=== PATIENT | female | born 1945 | race Caucasian/White ===

== ENCOUNTER 2017-04-24 19:00 | Observation (INO) | payer MEDICARE, OTHER ==
[2017-04-24] MEDS ORDERED: predniSONE 20 MG Tab PO ONE (19:14)
[2017-04-24] MEDS ORDERED: Albuterol/Ipratropium 3.0-0.5 MG/3 ML Neb Soln NEB ONE (19:14)
--- NOTE | 2017-04-24 19:20 | EDM.PDOC ---
ED HPI GENERAL MEDICAL PROBLEM - General Chief Complaint: Asthma Stated Complaint: ILLNESS Time Seen by Provider: 04/24/17 19:10 Source of Information: Reports: Patient, Old Records History Limitations: Reports: No Limitations - History of Present Illness INITIAL COMMENTS - FREE TEXT/NARRATIVE: 72 yo female with a pHx of asthma presents with increasing cough and wheezing since this past Wednesday. No fever. Cough occasionally productive of yellow sputum. Has not been to the clinic. Her neb anila'n and prednisone was "" so she threw them out. Use her MDI of albuterol about 30 minutes before arrival with little benefit. Onset: Gradual Onset Date: 04/19/17 Duration: Day(s): Location: Reports: Chest Severity: Moderate Improves with: Reports: Medication (albuterol), Rest Worsens with: Reports: Other (exertion, coughing) Context: Reports: Other (pHx of asthma) Associated Symptoms: Reports: Cough, Shortness of Breath (mild with exertion or coughing) Treatments IRONING PLEATER: Reports: Other Medication(s) (albuterol MDI) Generalized Pain Score (Numeric/FACES): 6 - Related Data Allergies Allergy/AdvReac Type Severity Reaction Status Date / Time amoxicillin [Amoxicillin] Allergy Hives Verified 04/24/17 19:05 nitrofurantoin Allergy Difficulty Verified 04/24/17 19:05 macrocrystalline Breathing [From Macrodantin] Sulfa (Sulfonamide Allergy Hives Verified 04/24/17 19:05 Antibiotics) sulfisoxazole Allergy Hives Verified 04/24/17 19:05 [From Gantrisin] sulfisoxazole acetyl Allergy Hives Verified 04/24/17 19:05 [From Gantrisin] Home Meds: Home Meds Cyanocobalamin (Vitamin B-12) [Cyanocobalamin Injection] 1,000 mcg IJ ASDIRECTED 06/18/13 [History] Fenofibrate,Micronized [Lofibra] 200 mg PO DAILY 06/18/13 [History] Fluticasone/Salmeterol [Advair 100-50 Diskus] 1 puff INH BID 06/18/13 [History] Levothyroxine [Sythroid] 100 mcg PO DAILY 06/18/13 [History] Montelukast [Singulair] 10 mg PO DAILY 06/18/13 [History] Olmesartan/Hydrochlorothiazide [Benicar Hct 40-25 mg Tablet] 0 mg PO DAILY 06/18 [History] Omeprazole [Prilosec] 40 mg PO DAILY 06/18/13 [History] PARoxetine HCl [Paxil Cr] 50 mg PO DAILY 06/18/13 [History] amLODIPine [Norvasc] 5 mg PO DAILY 06/18/13 [History] Bimatoprost [LUMIGAN 0.01% Ophth Soln] 2.5 ml EYEBOTH DAILY 01/04/16 [History] Flucinolone Acetonide 1% 1 applic TOP DAILY 01/04/16 [History] clonazePAM [Clonazepam] 1 mg PO ASDIRECTED PRN 01/04/16 [History] Past Medical History HEENT History: Reports: Cataract, Glaucoma Cardiovascular History: Reports: High Cholesterol, Hypertension Respiratory History: Reports: Asthma Gastrointestinal History: Reports: GERD, Irritable Bowel Syndrome PATENT PARALEGAL History: Reports: Psychiatric History: Reports: Depression Endocrine/Metabolic History: Reports: Other (See Below) Other Endocrine/Metabolic History: thyroid disease - Infectious Disease History Infectious Disease History: Reports: Chicken Pox - Past Surgical History HEENT Surgical History: Reports: Tonsillectomy Female Surgical History: Reports: Hysterectomy Social & Family History - Tobacco Use Smoking Status *Q: Unknown Ever Smoked Second Hand Smoke Exposure: No - Alcohol Use Days Per Week of Alcohol Use: 1 Number of Drinks Per Day: 2 Total Drinks Per Week: 2 - Recreational Drug Use Recreational Drug Use: No ED ROS GENERAL - Review of Systems Review Of Systems: See Below Constitutional: Reports: No Symptoms HEENT: Reports: No Symptoms Respiratory: Reports: Wheezing, Cough Cardiovascular: Reports: No Symptoms Endocrine: Reports: No Symptoms GI/Abdominal: Reports: No Symptoms : Reports: No Symptoms Musculoskeletal: Reports: No Symptoms Skin: Reports: No Symptoms Neurological: Reports: No Symptoms ED EXAM, GENERAL - Physical Exam Exam: See Below Exam Limited By: No Limitations General Appearance: Alert, WD/WN, Mild Distress Eye Exam: Bilateral Eye: Normal Inspection Ears: Normal External Exam, Normal Canal, Hearing Grossly Normal Ear Exam: Bilateral Ear: Auricle Normal, Canal Normal Nose: Normal Inspection Throat/Mouth: Normal Inspection, Normal Lips, Normal Oropharynx, Normal Voice, No Airway Compromise Head: Atraumatic, Normocephalic Neck: Normal Inspection, Supple, Non-Tender Respiratory/Chest: No Respiratory Distress, No Accessory Muscle Use, Wheezing ( faint), Other (frequent dry cough) Cardiovascular: Regular Rate, Rhythm, No Edema GI/Abdominal: Normal Bowel Sounds, Soft, Non-Tender, No Distention Back Exam: Normal Inspection. No: CVA Tenderness (R), CVA Tenderness (L) Extremities: Normal Inspection, Normal Range of Motion, Non-Tender Neurological: Alert, Oriented, CN II-XII Intact, Normal Cognition, No Motor/ Sensory Deficits Psychiatric: Normal Affect, Normal Mood Skin Exam: Warm, Dry, Intact, Normal Color, No Rash Lymphatic: No Adenopathy Course - Vital Signs Text/Narrative:: peak flow 290, [id number] 290 is 77% of predicted. Last Recorded V/S: Last Vital Signs Temp 37.2 C 04/24/17 19:00 Pulse 84 04/24/17 19:00 Resp 24 H 04/24/17 19:00 BP 150/52 H 04/24/17 19:00 Pulse Ox 97 04/24/17 19:00 - Orders/Labs/Meds Orders: Active Orders 24 hr Category Date Time Status RT Aerosol Therapy [RC] ASDIRECTED Care 04/24/17 19:14 Active RT Aerosol Therapy [RC] ASDIRECTED Care 04/24/17 19:47 Active RT Peak Flow Measurement [RC] ASDIRECTED Care 04/24/17 20:18 Ordered Labs: Laboratory Tests 04/24/17 Range/Units 19:27 WBC 7.4 (4.5-11.0) K/uL RBC 4.48 (3.30-5.50) M/uL Hgb 13.9 (12.0-15.0) g/dL Hct 40.3 (36.0-48.0) % MCV 90 (80-98) fL MCH 31 (27-31) pg MCHC 35 (32-36) % Plt Count 103 L (150-400) K/uL Meds: Medications Discontinued Medications Generic Name Dose Route Start Last Admin Trade Name Freq PRN Reason Stop Dose Admin Albuterol 2.5 mg 04/24/17 19:46 04/24/17 19:53 Proventil Neb Soln NEB 04/24/17 19:47 2.5 mg ONETIME ONE Administration Albuterol/Ipratropium 3 ml 04/24/17 19:14 04/24/17 19:18 Duoneb 3.0-0.5 Mg/3 Ml NEB 04/24/17 19:15 3 ml ONETIME ONE Administration Prednisone 40 mg 04/24/17 19:14 04/24/17 19:18 Prednisone PO 04/24/17 19:15 40 mg ONETIME ONE Administration Departure - Departure Time of Disposition: 20:50 Disposition: Refer to Observation Condition: Fair Clinical Impression: Asthma with status asthmaticus Qualifiers: Asthma severity: moderate Asthma persistence: unspecified Qualified Code(s): J45.902 - Unspecified asthma with status asthmaticus - Discharge Information Referrals: PCP,None [Primary Care Provider] - Forms: ED Department Discharge - My Orders Last 24 Hours: My Active Orders 04/24/17 19:14 RT Aerosol Therapy [RC] ASDIRECTED 04/24/17 19:47 RT Aerosol Therapy [RC] ASDIRECTED 04/24/17 20:18 RT Peak Flow Measurement [RC] ASDIRECTED - Assessment/Plan Last 24 Hours: My Active Orders 04/24/17 19:14 RT Aerosol Therapy [RC] ASDIRECTED 04/24/17 19:47 RT Aerosol Therapy [RC] ASDIRECTED 04/24/17 20:18 RT Peak Flow Measurement [RC] ASDIRECTED
[2017-04-24] MEDS ORDERED: Albuterol 0.083% 2.5 MG/3 ML Neb Soln NEB ONE (19:46)
[2017-04-24] MEDS ORDERED: LORazepam 2 MG/ML MDV IVPUSH ONE (21:15)
--- NOTE | 2017-04-24 21:37 | PCM.HP ---
H&P History of Present Illness - General Date of Service: 04/24/17 Admit Problem/Dx: Admission Diagnosis/Problem Admission Diagnosis/Problem Asthma with bronchitis Source of Information: Patient, Family (Cousin Mag De La Cruz) History Limitations: Reports: No Limitations - History of Present Illness Initial Comments - Free Text/Narative: Asthma with bronchitis; this is a 72 year old female admitted to hospital at [facility]. 72 yo female with a pHx of asthma presents with increasing cough and wheezing since this past Wednesday. No fever. Cough occasionally productive of yellow sputum. Has not been to the clinic. Her neb anila'n and prednisone was "" so she threw them out. Use her MDI of albuterol about 30 minutes before arrival with little benefit. Mrs. Gan reports cough has worsen in the past 2 days, today she cough til she threw up with incontinence of urine. Today coughed til she blacked out and fell to her knees. Onset of Symptoms: Reports: Sudden Duration of Symptoms: Reports: Day(s): (six), Getting Worse Location: Reports: Head, Chest Severity: Moderate Improves with: Reports: None Worsens with: Reports: Breathing (talking) Associated Symptoms: Reports: Cough, Fever/Chills (chills without fever), Headaches, Loss of Appetite, Malaise, Nausea/Vomiting, Shortness of Breath, Syncope (near syncope), Weakness Generalized Pain Score (Numeric/FACES): 6 - Related Data Allergies/Adverse Reactions: Allergies Allergy/AdvReac Type Severity Reaction Status Date / Time amoxicillin [Amoxicillin] Allergy Hives Verified 04/24/17 19:05 nitrofurantoin Allergy Difficulty Verified 04/24/17 19:05 macrocrystalline Breathing [From Macrodantin] Sulfa (Sulfonamide Allergy Hives Verified 04/24/17 19:05 Antibiotics) sulfisoxazole Allergy Hives Verified 04/24/17 19:05 [From Gantrisin] sulfisoxazole acetyl Allergy Hives Verified 04/24/17 19:05 [From Gantrisin] Home Medications: Home Meds Cyanocobalamin (Vitamin B-12) [Cyanocobalamin Injection] 1,000 mcg IJ ASDIRECTED 06/18/13 [History] Fluticasone/Salmeterol [Advair 100-50 Diskus] 1 puff INH BID 06/18/13 [History] Levothyroxine [Sythroid] 100 mcg PO DAILY 06/18/13 [History] Montelukast [Singulair] 10 mg PO DAILY 06/18/13 [History] PARoxetine HCl [Paxil Cr] 50 mg PO DAILY 06/18/13 [History] amLODIPine [Norvasc] 5 mg PO DAILY 06/18/13 [History] Bimatoprost [LUMIGAN 0.01% Ophth Soln] 2.5 ml EYEBOTH DAILY 01/04/16 [History] Flucinolone Acetonide 1% 1 applic TOP DAILY PRN 01/04/16 [History] clonazePAM [Clonazepam] 1 mg PO ASDIRECTED PRN 01/04/16 [History] Estradiol [Estrace 0.01% Vaginal Crm] 2 mg VAG ASDIRECTED 04/24/17 [History] Past Medical History HEENT History: Reports: Cataract, Glaucoma Cardiovascular History: Reports: High Cholesterol, Hypertension Respiratory History: Reports: Asthma Gastrointestinal History: Reports: GERD, Irritable Bowel Syndrome [employer] History: Reports: Psychiatric History: Reports: Depression Endocrine/Metabolic History: Reports: Other (See Below) Other Endocrine/Metabolic History: thyroid disease - Infectious Disease History Infectious Disease History: Reports: Chicken Pox - Past Surgical History HEENT Surgical History: Reports: Tonsillectomy Female Surgical History: Reports: Hysterectomy Social & Family History - Tobacco Use Smoking Status *Q: Unknown Ever Smoked Second Hand Smoke Exposure: No - Alcohol Use Days Per Week of Alcohol Use: 1 Number of Drinks Per Day: 2 Total Drinks Per Week: 2 - Recreational Drug Use Recreational Drug Use: No - Living Situation & Occupation Living situation: Reports: Occupation: Retired (lives with of 37 years in [place], [place].) H&P Review of Systems - Review of Systems: Review Of Systems: See Below General: Reports: Chills, Malaise, Weakness, Fatigue, Decreased Appetite, Other (uncontrolled cough) HEENT: Reports: Glasses, Headaches (today from cough), Post Nasal Drip, Sinus Congestion, Sore Throat Pulmonary: Reports: Shortness of Breath, Pleuritic Chest Pain, Cough Cardiovascular: Reports: Lightheadedness (from cough) Gastrointestinal: Reports: Nausea Genitourinary: Reports: Incontinence (from prolonged coughing spells.) Musculoskeletal: Reports: Muscle Stiffness (osteo and spinal stenosis) Skin: Reports: Other (scalp dermatitis) Psychiatric: Reports: Anxiety (chronic) Neurological: Reports: Headache (secondary to cough) Hematologic/Lymphatic: Reports: No Symptoms Immunologic: Reports: Anaphylaxis (medication allergies; amoxicillin, septra, macrobid. ) Exam - Exam Exam: See Below - Vital Signs Vital Signs: Last Vital Signs Temp 37.2 C 04/24/17 19:00 Pulse 81 04/24/17 20:30 Resp 15 04/24/17 20:30 BP 131/68 04/24/17 20:30 Pulse Ox 94 L 04/24/17 20:30 Weight: 58.967 kg - Exam General: Alert, Oriented, Cooperative, Mild Distress (secondary to frequent coughing) HEENT: PERRLA, Conjunctiva Clear, EACs Clear, EOMI, Hearing Intact, Mucosa Moist & [place], Pupils Equal, Pupils Reactive, Rhinitis, Other (left maxillary congestion, palpation painful, left facial cheeck with mild edema.) Neck: Supple, Trachea Midline, Full Range of Motion Lungs: Normal Respiratory Effort, Decreased Breath Sounds, Wheezing (left upper chest), Other (frequent cough is noted.) Cardiovascular: Regular Rate, Regular Rhythm, Normal S1, Normal S2 GI/Abdominal Exam: Normal Bowel Sounds, Soft, Non-Tender, No Distention, No Abnormal Bruit, No Mass (Female) Exam: Deferred Rectal (Female) Exam: Deferred Back Exam: Normal Inspection, Full Range of Motion Extremities: Normal Inspection, Normal Range of Motion, Non-Tender, No Pedal Edema, Normal Capillary Refill Skin: Warm, Dry, Intact Neurological: Reflexes Equal Bilateral, Strength Equal Bilateral Neuro Extensive - Mental Status: Alert, Oriented x3, Normal Mood/Affect, Normal Cognition, Memory Intact Psychiatric: Alert, Normal Affect, Normal Mood, Other (tremor noted to hands and body, Patient reports this is normal, worsen with illness or stress) - Patient Data Lab Results Last 24 hrs: Laboratory Results - last 24 hr 04/24/17 Range/Units 19:27 WBC 7.4 (4.5-11.0) K/uL RBC 4.48 (3.30-5.50) M/uL Hgb 13.9 (12.0-15.0) g/dL Hct 40.3 (36.0-48.0) % MCV 90 (80-98) fL MCH 31 (27-31) pg MCHC 35 (32-36) % Plt Count 103 L (150-400) K/uL Result Diagrams: 04/24/17 19:27 04/24/17 21:14 *Q Meaningful Use (ADM) - VTE *Q VTE Criteria *Q: - Stroke *Q Stroke Criteria *Q: - AMI *Q AMI Criteria *Q: - Problem List (1) Asthma with bronchitis SNOMED Code(s): 103436395 ICD Code: J45.909 - UNSPECIFIED ASTHMA, UNCOMPLICATED Status: Acute Priority: High Current Visit: Yes (2) Sinusitis, acute SNOMED Code(s): 73850472 ICD Code: J01.90 - ACUTE SINUSITIS, UNSPECIFIED Status: Acute Priority: Medium Current Visit: Yes Qualifiers: Sinusitis location: maxillary Recurrence: not specified as recurrent Qualified Code(s): J01.00 - Acute maxillary sinusitis, unspecified (3) Anxiety and depression SNOMED Code(s): 669164391 ICD Code: F41.8 - OTHER SPECIFIED ANXIETY DISORDERS Status: Acute Priority: Low Current Visit: Yes (4) Hypothyroid SNOMED Code(s): 32247991 ICD Code: E03.9 - HYPOTHYROIDISM, UNSPECIFIED Status: Acute Priority: Low Current Visit: Yes Qualifiers: Hypothyroidism type: unspecified Qualified Code(s): E03.9 - Hypothyroidism , unspecified Problem List Initiated/Reviewed/Updated: Yes Orders Last 24hrs: Active Orders 24 hr Category Date Time Status Patient Status Manage Transfer [TRANSFER] Routine ADT 04/24/17 21:16 Active RT Aerosol Therapy [RC] ASDIRECTED Care 04/24/17 19:14 Active RT Aerosol Therapy [RC] ASDIRECTED Care 04/24/17 19:47 Active RT Peak Flow Measurement [RC] ASDIRECTED Care 04/24/17 20:18 Active Chest 2V [CR] Stat Exams 04/24/17 21:14 Ordered COMPREHENSIVE METABOLIC PN,CMP [CHEM] Urgent Lab 04/24/17 21:14 Ordered TSH ULTRASENSITIVE [CHEM] Urgent Lab 04/24/17 21:14 Ordered Sodium Chloride 0.9% [Normal Saline] 1,000 ml Med 04/24/17 21:15 Active IV ASDIRECTED Resuscitation Status Routine Resus Stat 04/24/17 21:17 Ordered Medication Orders Sodium Chloride (Normal Saline) 1,000 mls @ 125 mls/hr IV ASDIRECTED [facility] Assessment/Plan Comment:: ASSESSMENT / PLAN 72 yo female with a pHx of asthma presents with increasing cough and wheezing since this past Wednesday. No fever. Cough occasionally productive of yellow sputum. Has not been to the clinic. Her neb anila'n and prednisone was "" so she threw them out. Use her MDI of albuterol about 30 minutes before arrival with little benefit. Mrs. Gan reports cough has worsen in the past 2 days, today she cough til she threw up with incontinence of urine. Today coughed til she blacked out and fell to her knees. Labs in ER: CBC, CMP, TSH, SPUTUM CULTURE: WBC 7.4, Hgb 13.9, HCT 40.3, PLT 102 , CMP NA 134, K+3.6, CL 100, ANION GAP 11.6, BUN 13, CR 0.9, GLUC 91, CO2 26 TSH 6.244 IMAGING; CHEST PA/LAT Mrs. Gan was given Albuterol neb, Duoneb, Prednisone 40 mg po without relief. Due to continued bronchospasm and weakness, will plan to admit OBS. Patient is in agreement with admission to hospital, reports," will stay only one night, need to be home to care for animals. is away on mission trip to [place]." Plan -Admit Observation to [address] [place] [address] for further monitoring Asthma with bronchitis, Acute sinusitis -IV Solumedrol 62.5mg every 6 hours -IV fluids for rehydration NS at 125 mL per hour -Albuterol nebs prn wheezing or cough -Duoneb every 6 hours -IV Rocephin 1 gm every 24 hours -IV Zithromax 500mg every 24 hours -Robitussin AC every 4 hours prn cough -Tessalon pearls tid prn -Advise to notify nurses of any chest pain or other symptoms -a.m. labs: CBC, BMP -lab: sputum culture pending Anxiety -continue current medical therapy -IV Ativan 1 mg every hours as needed for anxiety or nausea hypothyroidism -TSH elevated -will continue with Synthyroid Maintenance issues -Orders home meds: -Nutrition: Regular diet -Cruz catheter not indicated at this time -DVT:Lovenox 40 mg subcut -GI Prophalaxis; Protonix 40mg daily CODE STATUS: Full Admission status: Admit to Observation -I expect this patient to stay less than 24 hours, not to exceed 96 hours for evaluation and management of this problem. Disposition: home Primary care provider: Nancy Devries NP Hospitalist: Dr. Jeronimo Next of Kin: Mrs. Gan request Mag De La Cruz, Cousin and 2nd POA, to be notified of any changes in conditions, cell [phone] or House phone [phone]
[2017-04-24] MEDS: Sodium Chloride 0.9% 1,000 ML IV SCH (21:46)
[2017-04-24] MEDS ORDERED: Azithromycin 500 MG in Sodium Chloride 0.9% 250 ML IV SCH (22:00)
[2017-04-24] MEDS ORDERED: oxyCODONE 5 MG Tab PO PRN (22:26)
[2017-04-24] MEDS ORDERED: Ondansetron 4 MG Tab.DIS PO PRN (22:26)
[2017-04-24] MEDS ORDERED: Albuterol 0.083% 2.5 MG/3 ML Neb Soln NEB PRN (22:26)
[2017-04-24] MEDS ORDERED: LORazepam 2 MG/ML MDV IV PRN (22:26)
[2017-04-24] MEDS ORDERED: methylPREDNISolone Sodium Succinate 125 MG/2 ML SDV IV ONE (22:26)
[2017-04-24] MEDS ORDERED: Ibuprofen 400 MG Tab PO PRN (22:26)
[2017-04-24] MEDS ORDERED: Enoxaparin 40 MG/0.4 ML Syringe SUBCUT SCH (22:26)
[2017-04-24] MEDS ORDERED: Azithromycin 500 MG Vial ONE (22:44)
[2017-04-24] MEDS ORDERED: Sodium Chloride 0.9% 250 ML ONE (22:46)
[2017-04-24] MEDS: Albuterol/Ipratropium 3.0-0.5 MG/3 ML Neb Soln NEB SCH (23:00)
[2017-04-24] MEDS ORDERED: cefTRIAXone 1 GM in Sodium Chloride 0.9% 50 ML IV SCH (23:00)
[2017-04-24] MEDS: Codeine/guaiFENesin 100mg-10 MG/5 ML Syrup 10 ML Cup PO PRN (23:00)
[2017-04-24] MEDS: Morphine 2 MG/ML Syringe IVPUSH PRN (23:01)
[2017-04-24] MEDS: Montelukast 10 MG Tab PO SCH (23:04)
[2017-04-24] MEDS: methylPREDNISolone Sodium Succinate 40 MG/1 ML SDV IV SCH (23:38)
[2017-04-24] MEDS: Zolpidem 5 MG Tab PO PRN (23:46)
[2017-04-25] MEDS: Benzonatate 100 MG Cap PO PRN ×2 (02:20→19:48)
[2017-04-25] MEDS: Codeine/guaiFENesin 100mg-10 MG/5 ML Syrup 10 ML Cup PO PRN ×3 (03:42→15:03)
[2017-04-25] MEDS ORDERED: methylPREDNISolone Sodium Succinate 40 MG/1 ML SDV IV SCH (04:10)
[2017-04-25] MEDS: methylPREDNISolone Sodium Succinate 40 MG/1 ML SDV IV SCH (05:43)
[2017-04-25] MEDS: Sodium Chloride 0.9% 1,000 ML IV SCH (06:58)
[2017-04-25] MEDS: Albuterol/Ipratropium 3.0-0.5 MG/3 ML Neb Soln NEB SCH ×4 (07:34→20:56)
[2017-04-25] MEDS ORDERED: methylPREDNISolone Sodium Succinate 125 MG/2 ML SDV IV SCH (08:00)
[2017-04-25] MEDS: Acetaminophen 325 MG Tab PO PRN ×2 (08:34→15:03)
[2017-04-25] MEDS ORDERED: Latanoprost 0.005% Ophth Soln 2.5 ML Bottle EYEBOTH SCH (09:00)
[2017-04-25] MEDS ORDERED: Pantoprazole 40 MG Vial IVPUSH SCH (09:00)
[2017-04-25] MEDS ORDERED: PARoxetine 20 MG Tab PO SCH (09:00)
[2017-04-25] MEDS ORDERED: Levothyroxine 100 MCG Tab PO SCH (09:00)
[2017-04-25] MEDS: PAROXETINE 37.5 MG PO SCH (09:47)
[2017-04-25] MEDS: PAROXETINE 12.5 MG PO SCH (09:48)
[2017-04-25] MEDS: Levothyroxine 100 MCG Tab**POM PO SCH (09:49)
[2017-04-25] MEDS: amLODIPine 5 MG Tab**POM PO SCH (09:49)
[2017-04-25] MEDS: Montelukast 10 MG Tab PO SCH (09:50)
--- NOTE | 2017-04-25 10:51 | PCM.PN ---
- General Info Date of Service: 04/25/17 - Review of Systems Pulmonary: Reports: Shortness of Breath, Cough Systems Review Comment:: No acute events since the time of admission. Shortness of breath has improved but her cough persists and is the most annoying feature of her illness at this time. She has coughing spells that cause her to be short of breath and take several minutes to recover. She was able to tolerate some food at lunchtime. She has not had any fevers. She has been able to do some walking but fatigues quickly. - Patient Data Vitals - Most Recent: Last Vital Signs Temp 36.5 C 04/25/17 07:00 Pulse 83 04/25/17 07:00 Resp 18 04/25/17 07:00 BP 87/41 L 04/25/17 09:49 Pulse Ox 93 L 04/25/17 07:12 Weight - Most Recent: 58.967 kg I&O - Last 24 Hours: Intake & Output 04/24/17 04/25/17 04/25/17 22:59 06:59 14:59 Intake Total 250 726 440 Balance 250 726 440 Lab Results Last 24 Hours: Laboratory Results - last 24 hr 04/25/17 04/25/17 Range/Units 05:20 05:20 WBC 5.4 (4.5-11.0) K/uL RBC 4.27 (3.30-5.50) M/uL Hgb 13.2 (12.0-15.0) g/dL Hct 37.7 (36.0-48.0) % MCV 88 (80-98) fL MCH 31 (27-31) pg MCHC 35 (32-36) % Plt Count 173 (150-400) K/uL Neut % (Auto) 93 H (36-66) % Lymph % (Auto) 6 L (24-44) % [place] % (Auto) 1 L (2-6) % Eos % (Auto) 0 L (2-4) % Baso % (Auto) 0 (0-1) % Sodium 138 L (140-148) mmol/L Potassium 3.7 (3.6-5.2) mmol/L Chloride 102 (100-108) mmol/L Carbon Dioxide 22 (21-32) mmol/L Anion Gap 17.7 H (5.0-14.0) mmol/L BUN 15 (7-18) mg/dL Creatinine 0.9 (0.6-1.0) mg/dL Est Cr Clr Drug Dosing 46.05 mL/min Estimated GFR (MDRD) > 60 (>60) Glucose 158 H (74-106) mg/dL Calcium 8.5 (8.5-10.1) mg/dL Med Orders - Current: Current Medications Acetaminophen (Tylenol) 650 mg PO Q4H PRN PRN Reason: Pain (Mild 1-3)/fever Last Admin: 04/25/17 08:34 Dose: 650 mg Albuterol (Proventil Neb Soln) 2.5 mg NEB Q4H PRN PRN Reason: Shortness Of Breath/wheezing Albuterol/Ipratropium (Duoneb 3.0-0.5 Mg/3 Ml) 3 ml NEB QIDRT [facility] Last Admin: 04/25/17 07:34 Dose: 3 ml Amlodipine Besylate (Norvasc) 5 mg PO DAILY [facility] Last Admin: 04/25/17 09:49 Dose: Not Given Benzonatate (Tessalon Perles) 100 mg PO TID PRN PRN Reason: Cough Last Admin: 04/25/17 02:20 Dose: 100 mg Clonazepam (Klonopin) 1 mg PO ASDIRECTED PRN PRN Reason: Anxiety Enoxaparin Sodium (Lovenox) 40 mg SUBCUT Q24H [facility] Guaifenesin/Codeine Phosphate (Robitussin Ac) 10 ml PO Q4H PRN PRN Reason: Cough Last Admin: 04/25/17 08:34 Dose: 10 ml Sodium Chloride (Normal Saline) 1,000 mls @ 125 mls/hr IV ASDIRECTED [facility] Last Admin: 04/25/17 06:58 Dose: 125 mls/hr Ibuprofen (Motrin) 400 mg PO Q6H PRN PRN Reason: Pain (mild 1-3) Levothyroxine Sodium (Synthroid) 100 mcg PO ACBREAKFAST [facility] Last Admin: 04/25/17 09:49 Dose: 100 mcg Methylprednisolone Sodium Succinate (Solu-Medrol) 62.5 mg IV Q6H [facility] Last Admin: 04/25/17 08:35 Dose: 62.5 mg Montelukast Sodium (Singulair) 10 mg PO DAILY [facility] Last Admin: 04/25/17 09:50 Dose: 10 mg Morphine Sulfate (Morphine) 2 mg IVPUSH Q2H PRN PRN Reason: Pain (severe 7-10) Last Admin: 04/24/17 23:01 Dose: 2 mg Ondansetron HCl (Zofran Odt) 4 mg PO Q6H PRN PRN Reason: Nausea able to take PO Oxycodone HCl (Oxycodone) 5 mg PO Q4H PRN PRN Reason: Pain (moderate 4-6) Pantoprazole Sodium (Protonix Iv) 40 mg IVPUSH DAILY [facility] Last Admin: 04/25/17 08:40 Dose: 40 mg Bimatoprost (Lumigan () 0.01%Pom) 0 each EYEBOTH BEDTIME [facility] Paroxetine Er (Paxil (Cr) 37.5mgPom) 0 each PO DAILY [facility] Last Admin: 04/25/17 09:47 Dose: 1 each Paroxetine Er (Paxil (Cr) 12.5mgPom) 0 each PO DAILY [facility] Last Admin: 04/25/17 09:48 Dose: 1 each Zolpidem Tartrate (Ambien) 5 mg PO BEDTIME PRN PRN Reason: Sleep Last Admin: 04/24/17 23:46 Dose: 5 mg Discontinued Medications Albuterol (Proventil Neb Soln) 2.5 mg NEB ONETIME ONE Stop: 04/24/17 19:47 Last Admin: 04/24/17 19:53 Dose: 2.5 mg Albuterol/Ipratropium (Duoneb 3.0-0.5 Mg/3 Ml) 3 ml NEB ONETIME ONE Stop: 04/24/17 19:15 Last Admin: 04/24/17 19:18 Dose: 3 ml Azithromycin (Zithromax) Confirm Administered Dose 500 mg .ROUTE .STK-MED ONE Stop: 04/24/17 22:45 Last Admin: 04/24/17 22:54 Dose: Not Given Enoxaparin Sodium (Lovenox) 40 mg SUBCUT DAILY [facility] Last Admin: 04/24/17 23:28 Dose: 40 mg Azithromycin 500 mg/ Sodium (Chloride) 250 mls @ 250 mls/hr IV Q24H [facility] Stop: 04/26/17 22:59 Last Admin: 04/24/17 22:51 Dose: 250 mls/hr Ceftriaxone Sodium 1 gm/ (Sodium Chloride) 50 mls @ 200 mls/hr IV Q24H [facility] Stop: 05/01/17 23:01 Last Admin: 04/25/17 01:04 Dose: 100 mls/hr Sodium Chloride (Normal Saline) Confirm Administered Dose 250 mls @ as directed .ROUTE .STK-MED ONE Stop: 04/24/17 22:47 Last Admin: 04/24/17 22:54 Dose: Not Given Latanoprost (Xalatan 0.005% Ophth Soln) 0 ml EYEBOTH DAILY [facility] Levothyroxine Sodium (Synthroid) 100 mcg PO DAILY [facility] Lorazepam (Ativan) 1 mg IVPUSH ONETIME ONE Stop: 04/24/17 21:16 Last Admin: 04/24/17 21:46 Dose: 1 mg Lorazepam (Ativan) 1 mg IV Q6H PRN PRN Reason: Nausea/Vomiting Methylprednisolone Sodium Succinate (Solu-Medrol) 125 mg IV ONETIME ONE Stop: 04/24/17 22:27 Last Admin: 04/25/17 02:08 Dose: Not Given Methylprednisolone Sodium Succinate (Solu-Medrol) 62.5 mg IV Q6H [facility] Methylprednisolone Sodium Succinate (Solu-Medrol) 62.5 mg IV Q6H [facility] Last Admin: 04/25/17 05:43 Dose: 62.5 mg Prednisone (Prednisone) 40 mg PO ONETIME ONE Stop: 04/24/17 19:15 Last Admin: 04/24/17 19:18 Dose: 40 mg - Exam Quality Assessment: Supplemental Oxygen General: Alert, Oriented, Cooperative, No Acute Distress Neck: Supple Lungs: Clear to Auscultation, Normal Respiratory Effort. No: Wheezing Cardiovascular: Regular Rate, Regular Rhythm Extremities: No Pedal Edema Psy/Mental Status: Alert, Normal Affect - Problem List Review Problem List Initiated/Reviewed/Updated: Yes - My Orders Last 24 Hours: My Active Orders 04/25/17 09:00 Patient's Own Medication [Ptom] 0 each PO DAILY Patient's Own Medication [Ptom] 0 each PO DAILY 04/25/17 16:30 predniSONE 20 mg PO BIDAC 04/25/17 21:00 Azithromycin [Zithromax] 500 mg PO BEDTIME Cefdinir [Omnicef] 300 mg PO BID 04/26/17 07:30 Pantoprazole [ProTONIX] 40 mg PO ACBREAKFAST - Plan Plan:: ASSESSMENT / PLAN Asthma with bronchitis, Acute sinusitis - clinically better this morning but still has impressive cough and short of breath with any activity. Very nervous about going home with only recent improvement in her symptoms. -Albuterol nebs prn wheezing or cough -Duoneb 4 times daily -cefdinir and azithromycin -Transition to prednisone -Robitussin AC every 4 hours prn cough -Tessalon pearls tid prn supplement oxygen if needed - Anxiety - No major issues at this time. -continue current medical therapy hypothyroidism - TSH is mildly elevated but this was checked in the setting of an acute illness. -will continue with Synthyroid -Recheck TSH in 4-6 weeks Maintenance issues -Orders home meds: -Nutrition: Regular diet -DVT: Ambulation -GI Prophalaxis; Protonix 40mg daily CODE STATUS: Full Admission status: Admit to Observation -I expect this patient to stay less than 24 hours, not to exceed 96 hours for evaluation and management of this problem. Disposition: home tomorrow if stable overnight Primary care provider: TERRA Becerra M.D.
[2017-04-25] MEDS: ClonazePAM 1 MG Tab PO PRN (15:34)
[2017-04-25] MEDS: predniSONE 20 MG Tab PO SCH (16:37)
[2017-04-25] MEDS: Morphine 2 MG/ML Syringe IVPUSH PRN (19:48)
[2017-04-25] MEDS: Enoxaparin 40 MG/0.4 ML Syringe SUBCUT SCH (20:56)
[2017-04-25] MEDS: Cefdinir 300 MG Cap PO SCH (20:56)
[2017-04-25] MEDS: Azithromycin 250 MG Tab PO SCH (20:56)
[2017-04-25] MEDS: BIMATOPROST 0.01% EYEBOTH SCH (20:56)
[2017-04-25] MEDS: Zolpidem 5 MG Tab PO PRN (21:06)
[2017-04-26] MEDS: Codeine/guaiFENesin 100mg-10 MG/5 ML Syrup 10 ML Cup PO PRN ×6 (00:40→23:38)
[2017-04-26] MEDS: ClonazePAM 1 MG Tab PO PRN ×3 (02:38→21:19)
[2017-04-26] MEDS: Benzonatate 100 MG Cap PO PRN ×3 (03:31→21:19)
[2017-04-26] MEDS: Albuterol/Ipratropium 3.0-0.5 MG/3 ML Neb Soln NEB SCH (07:25)
[2017-04-26] MEDS: Pantoprazole 40 MG Tab.CR PO SCH (08:05)
[2017-04-26] MEDS: Cefdinir 300 MG Cap PO SCH ×2 (08:06→21:17)
[2017-04-26] MEDS: predniSONE 20 MG Tab PO SCH ×2 (08:06→17:47)
[2017-04-26] MEDS: Levothyroxine 100 MCG Tab**POM PO SCH (08:06)
[2017-04-26] MEDS: PAROXETINE 12.5 MG PO SCH (08:07)
[2017-04-26] MEDS: PAROXETINE 37.5 MG PO SCH (08:07)
[2017-04-26] MEDS: Montelukast 10 MG Tab PO SCH (08:08)
[2017-04-26] MEDS: Morphine 2 MG/ML Syringe IVPUSH PRN (10:10)
--- NOTE | 2017-04-26 10:31 | CR ---
Heart size within normal limits. Pulmonary vasculature within normal limits. No focal consolidation.
[2017-04-26] MEDS ORDERED: Non-Formulary Medication 1 Each (Fluticasone/Salmeterol [Advair 100-50] 1 PUFF) INH SCH (10:45)
[2017-04-26] MEDS: Levalbuterol HCl 1.25 MG/3 ML Neb NEB PRN ×2 (11:07→15:36)
[2017-04-26] MEDS: ADVAIR 250/50 INHALER (PTOM) INH SCH ×2 (11:08→21:18)
--- NOTE | 2017-04-26 11:55 | PCM.PN ---
- General Info Date of Service: 04/26/17 Subjective Update: Ms. Gan continues to experience difficulty with cough, for the most part nonproductive. She gets paroxysms of coughing which leave her significantly short of breath. Otherwise she is been stable with good vital signs and has remained afebrile. Functional Status: Reports: Tolerating Diet, Ambulating, Urinating - Review of Systems General: Denies: Fever, Chills Pulmonary: Reports: Shortness of Breath, Cough. Denies: Sputum, Hemoptysis, Wheezing Cardiovascular: Reports: Dyspnea on Exertion. Denies: Chest Pain, Palpitations , Orthopnea, PND, Edema, Lightheadedness Gastrointestinal: Reports: No Symptoms - Patient Data Vitals - Most Recent: Last Vital Signs Temp 98.5 F 04/26/17 11:00 Pulse 72 04/26/17 11:09 Resp 18 04/26/17 11:00 BP 123/43 L 04/26/17 11:00 Pulse Ox 91 L 04/26/17 11:09 Weight - Most Recent: 130 lb I&O - Last 24 Hours: Intake & Output 04/25/17 04/26/17 04/26/17 22:59 06:59 14:59 Intake Total 2186 1200 Balance 2186 1200 Med Orders - Current: Current Medications Acetaminophen (Tylenol) 650 mg PO Q4H PRN PRN Reason: Pain (Mild 1-3)/fever Last Admin: 04/25/17 15:03 Dose: 650 mg Amlodipine Besylate (Norvasc) 5 mg PO DAILY [facility] Last Admin: 04/25/17 09:49 Dose: Not Given Azithromycin (Zithromax) 500 mg PO BEDTIME [facility] Last Admin: 04/25/17 20:56 Dose: 500 mg Benzonatate (Tessalon Perles) 100 mg PO TID PRN PRN Reason: Cough Last Admin: 04/26/17 03:31 Dose: 100 mg Cefdinir (Omnicef) 300 mg PO BID [facility] Last Admin: 04/26/17 08:06 Dose: 300 mg Clonazepam (Klonopin) 1 mg PO Q4H PRN PRN Reason: Anxiety Enoxaparin Sodium (Lovenox) 40 mg SUBCUT Q24H [facility] Last Admin: 04/25/17 20:56 Dose: 40 mg Guaifenesin/Codeine Phosphate (Robitussin Ac) 10 ml PO Q4H PRN PRN Reason: Cough Last Admin: 04/26/17 08:29 Dose: 10 ml Ibuprofen (Motrin) 400 mg PO Q6H PRN PRN Reason: Pain (mild 1-3) Last Admin: 04/25/17 21:05 Dose: 400 mg Levalbuterol HCl (Xopenex) 1.25 mg NEB Q4H PRN PRN Reason: Dyspnea Last Admin: 04/26/17 11:07 Dose: 1.25 mg Levothyroxine Sodium (Synthroid) 100 mcg PO ACBREAKFAST [facility] Last Admin: 04/26/17 08:06 Dose: 100 mcg Melatonin (Melatonin) 9 mg PO BEDTIME [facility] Montelukast Sodium (Singulair) 10 mg PO DAILY [facility] Last Admin: 04/26/17 08:08 Dose: 10 mg Morphine Sulfate (Morphine) 2 mg IVPUSH Q2H PRN PRN Reason: Pain (severe 7-10) Last Admin: 04/26/17 10:10 Dose: 2 mg Ondansetron HCl (Zofran Odt) 4 mg PO Q6H PRN PRN Reason: Nausea able to take PO Oxycodone HCl (Oxycodone) 5 mg PO Q4H PRN PRN Reason: Pain (moderate 4-6) Pantoprazole Sodium (Protonix) 40 mg PO ACBREAKFAST [facility] Last Admin: 04/26/17 08:05 Dose: 40 mg Bimatoprost (Lumigan () 0.01%Pom) 0 each EYEBOTH BEDTIME [facility] Last Admin: 04/25/17 20:56 Dose: 1 each Paroxetine Er (Paxil (Cr) 37.5mgPom) 0 each PO DAILY [facility] Last Admin: 04/26/17 08:07 Dose: 1 each Paroxetine Er (Paxil (Cr) 12.5mgPom) 0 each PO DAILY [facility] Last Admin: 04/26/17 08:07 Dose: 1 each Advair 250/50 (Inhaler (Ptom)) 0 each INH BIDRT [facility] Last Admin: 04/26/17 11:08 Dose: 1 each Prednisone (Prednisone) 20 mg PO BIDAC [facility] Last Admin: 04/26/17 08:06 Dose: 20 mg Discontinued Medications Albuterol (Proventil Neb Soln) 2.5 mg NEB ONETIME ONE Stop: 04/24/17 19:47 Last Admin: 04/24/17 19:53 Dose: 2.5 mg Albuterol (Proventil Neb Soln) 2.5 mg NEB Q4H PRN PRN Reason: Shortness Of Breath/wheezing Albuterol/Ipratropium (Duoneb 3.0-0.5 Mg/3 Ml) 3 ml NEB ONETIME ONE Stop: 04/24/17 19:15 Last Admin: 04/24/17 19:18 Dose: 3 ml Albuterol/Ipratropium (Duoneb 3.0-0.5 Mg/3 Ml) 3 ml NEB QIDRT [facility] Last Admin: 04/26/17 07:25 Dose: Not Given Azithromycin (Zithromax) Confirm Administered Dose 500 mg .ROUTE .STK-MED ONE Stop: 04/24/17 22:45 Last Admin: 04/24/17 22:54 Dose: Not Given Clonazepam (Klonopin) 1 mg PO ASDIRECTED PRN PRN Reason: Anxiety Last Admin: 04/26/17 02:38 Dose: 1 mg Enoxaparin Sodium (Lovenox) 40 mg SUBCUT DAILY [facility] Last Admin: 04/24/17 23:28 Dose: 40 mg Sodium Chloride (Normal Saline) 1,000 mls @ 125 mls/hr IV ASDIRECTED [facility] Last Admin: 04/25/17 06:58 Dose: 125 mls/hr Azithromycin 500 mg/ Sodium (Chloride) 250 mls @ 250 mls/hr IV Q24H [facility] Stop: 04/26/17 22:59 Last Admin: 04/24/17 22:51 Dose: 250 mls/hr Ceftriaxone Sodium 1 gm/ (Sodium Chloride) 50 mls @ 200 mls/hr IV Q24H [facility] Stop: 05/01/17 23:01 Last Admin: 04/25/17 01:04 Dose: 100 mls/hr Sodium Chloride (Normal Saline) Confirm Administered Dose 250 mls @ as directed .ROUTE .STK-MED ONE Stop: 04/24/17 22:47 Last Admin: 04/24/17 22:54 Dose: Not Given Latanoprost (Xalatan 0.005% Ophth Soln) 0 ml EYEBOTH DAILY [facility] Levothyroxine Sodium (Synthroid) 100 mcg PO DAILY [facility] Lorazepam (Ativan) 1 mg IVPUSH ONETIME ONE Stop: 04/24/17 21:16 Last Admin: 04/24/17 21:46 Dose: 1 mg Lorazepam (Ativan) 1 mg IV Q6H PRN PRN Reason: Nausea/Vomiting Methylprednisolone Sodium Succinate (Solu-Medrol) 125 mg IV ONETIME ONE Stop: 04/24/17 22:27 Last Admin: 04/25/17 02:08 Dose: Not Given Methylprednisolone Sodium Succinate (Solu-Medrol) 62.5 mg IV Q6H [facility] Methylprednisolone Sodium Succinate (Solu-Medrol) 62.5 mg IV Q6H [facility] Last Admin: 04/25/17 05:43 Dose: 62.5 mg Methylprednisolone Sodium Succinate (Solu-Medrol) 62.5 mg IV Q6H [facility] Last Admin: 04/25/17 08:35 Dose: 62.5 mg Pantoprazole Sodium (Protonix Iv) 40 mg IVPUSH DAILY [facility] Last Admin: 04/25/17 08:40 Dose: 40 mg Prednisone (Prednisone) 40 mg PO ONETIME ONE Stop: 04/24/17 19:15 Last Admin: 04/24/17 19:18 Dose: 40 mg Zolpidem Tartrate (Ambien) 5 mg PO BEDTIME PRN PRN Reason: Sleep Last Admin: 04/25/17 21:06 Dose: 5 mg - Exam Quality Assessment: DVT Prophylaxis. No: Supplemental Oxygen General: Alert, Oriented, Cooperative, Mild Distress Lungs: Normal Respiratory Effort. No: Crackles, Rales, Rhonchi, Rub, Stridor, Wheezing Cardiovascular: Regular Rate, Regular Rhythm, No Murmurs GI/Abdominal Exam: Soft, Non-Tender, No Organomegaly, No Distention Extremities: Non-Tender, No Pedal Edema Skin: Warm, Dry - Problem List Review Problem List Initiated/Reviewed/Updated: Yes - My Orders Last 24 Hours: My Active Orders 04/26/17 10:35 ClonazePAM [KlonoPIN] 1 mg PO Q4H PRN 04/26/17 10:36 RT Aerosol Therapy [RC] ASDIRECTED Levalbuterol HCl [Xopenex] 1.25 mg NEB Q4H PRN 04/26/17 11:00 Patient's Own Medication [Ptom] 0 each INH BIDRT 04/26/17 21:00 Melatonin 9 mg PO BEDTIME - Plan Plan:: ASSESSMENT / PLAN Asthma with bronchitis, Acute sinusitis - continued nonproductive cough occurring in prolonged episodes in leaving her shortness of breath. Otherwise stable and afebrile -Xopenex nebs as needed -cefdinir and azithromycin -Transition to prednisone -Robitussin AC every 4 hours prn cough -Tessalon pearls tid prn supplement oxygen if needed Anxiety - No major issues at this time. -continue current medical therapy hypothyroidism - TSH is mildly elevated but this was checked in the setting of an acute illness. -will continue with Synthyroid -Recheck TSH in 4-6 weeks Maintenance issues -Orders home meds: -Nutrition: Regular diet -DVT: Ambulation -GI Prophalaxis; Protonix 40mg daily CODE STATUS: Full Admission status: Admit to Observation -I expect this patient to stay less than 24 hours, not to exceed 96 hours for evaluation and management of this problem. Disposition: home tomorrow if stable overnight Primary care provider: Nancy Devries NP
[2017-04-26] MEDS ORDERED: Calcium Carbonate 500 MG Tab.Chew PO PRN (15:27)
[2017-04-26] MEDS: Acetaminophen 325 MG Tab PO PRN ×2 (16:15→21:45)
[2017-04-26] MEDS ORDERED: Benzocaine/Cetylpyridinium/Menthol Lozenge MUCMEM PRN (19:47)
[2017-04-26] MEDS: Enoxaparin 40 MG/0.4 ML Syringe SUBCUT SCH (21:16)
[2017-04-26] MEDS: Melatonin 3 MG Tab PO SCH (21:17)
[2017-04-26] MEDS: BIMATOPROST 0.01% EYEBOTH SCH (21:18)
[2017-04-26] MEDS: Azithromycin 250 MG Tab PO SCH (21:18)
[2017-04-27] MEDS: ClonazePAM 1 MG Tab PO PRN ×2 (01:49→08:38)
[2017-04-27] MEDS: Levalbuterol HCl 1.25 MG/3 ML Neb NEB PRN (05:49)
[2017-04-27] MEDS: ADVAIR 250/50 INHALER (PTOM) INH SCH ×2 (07:16→20:57)
[2017-04-27] MEDS: Pantoprazole 40 MG Tab.CR PO SCH (07:34)
[2017-04-27] MEDS: predniSONE 20 MG Tab PO SCH (07:34)
[2017-04-27] MEDS: Levothyroxine 100 MCG Tab**POM PO SCH (07:35)
[2017-04-27] MEDS: Codeine/guaiFENesin 100mg-10 MG/5 ML Syrup 10 ML Cup PO PRN ×2 (07:35→16:53)
[2017-04-27] MEDS: Cefdinir 300 MG Cap PO SCH ×2 (08:37→20:55)
[2017-04-27] MEDS: PAROXETINE 37.5 MG PO SCH (08:37)
[2017-04-27] MEDS: PAROXETINE 12.5 MG PO SCH (08:37)
[2017-04-27] MEDS: Montelukast 10 MG Tab PO SCH (08:37)
[2017-04-27] MEDS ORDERED: ESTRACE 0.01% VAG SCH ×2 (09:00→21:00)
[2017-04-27] MEDS: Morphine 10 MG/0.5 ML Oral Syringe PO PRN ×2 (11:11→20:10)
[2017-04-27] MEDS: Benzonatate 100 MG Cap PO PRN ×2 (11:40→20:10)
--- NOTE | 2017-04-27 13:03 | PCM.PN ---
- General Info Date of Service: 04/27/17 Subjective Update: Ms. Gan has continued to experience shortness of breath, cough, and high level of anxiety. Overall her cough seems to be improved over the past 24 hours , she has remained afebrile with stable vital signs. She did develop hypoxia during the night but this seemed to occur after she received sedating medication. She is currently on room air with good saturations and appears to be fairly comfortable. - Review of Systems General: Denies: Fever, Chills Pulmonary: Reports: Shortness of Breath, Cough, Sputum. Denies: Pleuritic Chest Pain, Hemoptysis, Wheezing Cardiovascular: Reports: Dyspnea on Exertion. Denies: Chest Pain, Palpitations , Orthopnea, PND, Edema Gastrointestinal: Reports: No Symptoms - Patient Data Vitals - Most Recent: Last Vital Signs Temp 98 F 04/27/17 11:36 Pulse 61 04/27/17 11:36 Resp 20 04/27/17 11:36 BP 121/34 L 04/27/17 11:36 Pulse Ox 90 L 04/27/17 11:36 Weight - Most Recent: 130 lb I&O - Last 24 Hours: Intake & Output 04/26/17 04/27/17 04/27/17 22:59 06:59 14:59 Intake Total 1370 Balance 1370 Gary Results Last 24 Hours: Microbiology 04/26/17 16:44 Gram Stain - Final Sputum - Expectorated Med Orders - Current: Current Medications Acetaminophen (Tylenol) 650 mg PO Q4H PRN PRN Reason: Pain (Mild 1-3)/fever Last Admin: 04/26/17 21:45 Dose: 650 mg Amlodipine Besylate (Norvasc) 5 mg PO DAILY [facility] Last Admin: 04/25/17 09:49 Dose: Not Given Azithromycin (Zithromax) 500 mg PO BEDTIME [facility] Last Admin: 04/26/17 21:18 Dose: 500 mg Benzocaine/Menthol (Cepacol Sore Throat) 1 lozenge MUCMEM Q1H PRN PRN Reason: Sore Throat Last Admin: 04/26/17 20:12 Dose: 1 chet Benzonatate (Tessalon Perles) 100 mg PO TID PRN PRN Reason: Cough Last Admin: 04/27/17 11:40 Dose: 100 mg Budesonide (Pulmicort) 0.5 mg NEB BIDRT [facility] Calcium Carbonate/Glycine (Tums) 500 mg PO Q2H PRN PRN Reason: Indigestion Last Admin: 04/26/17 18:19 Dose: 500 mg Cefdinir (Omnicef) 300 mg PO BID [facility] Last Admin: 04/27/17 08:37 Dose: 300 mg Enoxaparin Sodium (Lovenox) 40 mg SUBCUT Q24H [facility] Last Admin: 04/26/17 21:16 Dose: 40 mg Guaifenesin/Codeine Phosphate (Robitussin Ac) 10 ml PO Q4H PRN PRN Reason: Cough Last Admin: 04/27/17 07:35 Dose: 10 ml Ibuprofen (Motrin) 400 mg PO Q6H PRN PRN Reason: Pain (mild 1-3) Last Admin: 04/25/17 21:05 Dose: 400 mg Levalbuterol HCl (Xopenex) 1.25 mg NEB Q4H PRN PRN Reason: Dyspnea Last Admin: 04/27/17 05:49 Dose: 1.25 mg Levothyroxine Sodium (Synthroid) 100 mcg PO ACBREAKFAST [facility] Last Admin: 04/27/17 07:35 Dose: 100 mcg Lorazepam (Ativan) 0.5 mg PO Q4H PRN PRN Reason: Anxiety Melatonin (Melatonin) 9 mg PO BEDTIME [facility] Last Admin: 04/26/17 21:17 Dose: 9 mg Montelukast Sodium (Singulair) 10 mg PO DAILY [facility] Last Admin: 04/27/17 08:37 Dose: 10 mg Morphine Sulfate (Morphine 10 Mg/0.5 Ml Oral Syringe) 5 mg PO Q2H PRN PRN Reason: Pain Last Admin: 04/27/17 11:11 Dose: 5 mg Estrace 0.01% (Vaginal Cream (Ptom)) 0 mg VAG Q48H [facility] Ondansetron HCl (Zofran Odt) 4 mg PO Q6H PRN PRN Reason: Nausea able to take PO Oxycodone HCl (Oxycodone) 5 mg PO Q4H PRN PRN Reason: Pain (moderate 4-6) Pantoprazole Sodium (Protonix) 40 mg PO ACBREAKFAST [facility] Last Admin: 04/27/17 07:34 Dose: 40 mg Bimatoprost (Lumigan () 0.01%Pom) 0 each EYEBOTH BEDTIME [facility] Last Admin: 04/26/17 21:18 Dose: 1 each Paroxetine Er (Paxil (Cr) 37.5mgPom) 0 each PO DAILY [facility] Last Admin: 04/27/17 08:37 Dose: 1 each Paroxetine Er (Paxil (Cr) 12.5mgPom) 0 each PO DAILY [facility] Last Admin: 04/27/17 08:37 Dose: 1 each Advair 250/50 (Inhaler (Ptom)) 0 each INH BIDRT [facility] Last Admin: 04/27/17 07:16 Dose: 1 each Simvastatin (Zocor) 20 mg PO QPM [facility] Discontinued Medications Albuterol (Proventil Neb Soln) 2.5 mg NEB ONETIME ONE Stop: 04/24/17 19:47 Last Admin: 04/24/17 19:53 Dose: 2.5 mg Albuterol (Proventil Neb Soln) 2.5 mg NEB Q4H PRN PRN Reason: Shortness Of Breath/wheezing Albuterol/Ipratropium (Duoneb 3.0-0.5 Mg/3 Ml) 3 ml NEB ONETIME ONE Stop: 04/24/17 19:15 Last Admin: 04/24/17 19:18 Dose: 3 ml Albuterol/Ipratropium (Duoneb 3.0-0.5 Mg/3 Ml) 3 ml NEB QIDRT [facility] Last Admin: 04/26/17 07:25 Dose: Not Given Azithromycin (Zithromax) Confirm Administered Dose 500 mg .ROUTE .STK-MED ONE Stop: 04/24/17 22:45 Last Admin: 04/24/17 22:54 Dose: Not Given Clonazepam (Klonopin) 1 mg PO ASDIRECTED PRN PRN Reason: Anxiety Last Admin: 04/26/17 02:38 Dose: 1 mg Clonazepam (Klonopin) 1 mg PO Q4H PRN PRN Reason: Anxiety Last Admin: 04/27/17 08:38 Dose: 1 mg Enoxaparin Sodium (Lovenox) 40 mg SUBCUT DAILY [facility] Last Admin: 04/24/17 23:28 Dose: 40 mg Sodium Chloride (Normal Saline) 1,000 mls @ 125 mls/hr IV ASDIRECTED [facility] Last Admin: 04/25/17 06:58 Dose: 125 mls/hr Azithromycin 500 mg/ Sodium (Chloride) 250 mls @ 250 mls/hr IV Q24H [facility] Stop: 04/26/17 22:59 Last Admin: 04/24/17 22:51 Dose: 250 mls/hr Ceftriaxone Sodium 1 gm/ (Sodium Chloride) 50 mls @ 200 mls/hr IV Q24H [facility] Stop: 05/01/17 23:01 Last Admin: 04/25/17 01:04 Dose: 100 mls/hr Sodium Chloride (Normal Saline) Confirm Administered Dose 250 mls @ as directed .ROUTE .STK-MED ONE Stop: 04/24/17 22:47 Last Admin: 04/24/17 22:54 Dose: Not Given Latanoprost (Xalatan 0.005% Ophth Soln) 0 ml EYEBOTH DAILY [facility] Levothyroxine Sodium (Synthroid) 100 mcg PO DAILY [facility] Lorazepam (Ativan) 1 mg IVPUSH ONETIME ONE Stop: 04/24/17 21:16 Last Admin: 04/24/17 21:46 Dose: 1 mg Lorazepam (Ativan) 1 mg IV Q6H PRN PRN Reason: Nausea/Vomiting Methylprednisolone Sodium Succinate (Solu-Medrol) 125 mg IV ONETIME ONE Stop: 04/24/17 22:27 Last Admin: 04/25/17 02:08 Dose: Not Given Methylprednisolone Sodium Succinate (Solu-Medrol) 62.5 mg IV Q6H [facility] Methylprednisolone Sodium Succinate (Solu-Medrol) 62.5 mg IV Q6H [facility] Last Admin: 04/25/17 05:43 Dose: 62.5 mg Methylprednisolone Sodium Succinate (Solu-Medrol) 62.5 mg IV Q6H [facility] Last Admin: 04/25/17 08:35 Dose: 62.5 mg Morphine Sulfate (Morphine) 2 mg IVPUSH Q2H PRN PRN Reason: Pain (severe 7-10) Last Admin: 04/26/17 10:10 Dose: 2 mg Pantoprazole Sodium (Protonix Iv) 40 mg IVPUSH DAILY [facility] Last Admin: 04/25/17 08:40 Dose: 40 mg Prednisone (Prednisone) 40 mg PO ONETIME ONE Stop: 04/24/17 19:15 Last Admin: 04/24/17 19:18 Dose: 40 mg Prednisone (Prednisone) 20 mg PO BIDAC [facility] Last Admin: 04/27/17 07:34 Dose: 20 mg Zolpidem Tartrate (Ambien) 5 mg PO BEDTIME PRN PRN Reason: Sleep Last Admin: 04/25/17 21:06 Dose: 5 mg - Exam Quality Assessment: DVT Prophylaxis General: Alert, Oriented, Cooperative, Mild Distress Lungs: Clear to Auscultation, Normal Respiratory Effort. No: Crackles, Rales, Rhonchi, Wheezing Cardiovascular: Regular Rate, Regular Rhythm, No Murmurs GI/Abdominal Exam: Soft, Non-Tender, No Organomegaly, No Distention Extremities: Non-Tender, No Pedal Edema Skin: Warm, Dry, Intact - Problem List Review Problem List Initiated/Reviewed/Updated: Yes - My Orders Last 24 Hours: My Active Orders 04/26/17 15:27 Calcium Carbonate [Tums] 500 mg PO Q2H PRN Peripheral IV Discontinue [OM.PC] Routine 04/26/17 21:00 Melatonin 9 mg PO BEDTIME 04/27/17 10:41 LORazepam [Ativan] 0.5 mg PO Q4H PRN Morphine [Morphine 10 MG/0.5 ML Oral Syringe] 5 mg PO Q2H PRN 04/27/17 10:43 RT Aerosol Therapy [RC] ASDIRECTED 04/27/17 21:00 Budesonide [Pulmicort] 0.5 mg NEB BIDRT Estradiol [Estrace 0.01% Vaginal Crm] 0 mg VAG Q48H - Plan Plan:: ASSESSMENT / PLAN Asthma with bronchitis, Acute sinusitis - continues to experience cough although improved from yesterday, remains short of breath -Xopenex nebs as needed -cefdinir and azithromycin -Discontinue prednisone -Robitussin AC every 4 hours prn cough -Tessalon pearls tid prn supplement oxygen if needed -Morphine 5 mg by mouth every 2 hours as needed for dyspnea Anxiety -continues to experience a very high level of anxiety -Discontinue prednisone to see if this decreases level of anxiety -Discontinue clonazepam -Trial of lorazepam 0.5 mg by mouth every 2 hours when necessary hypothyroidism - TSH is mildly elevated but this was checked in the setting of an acute illness. -will continue with Synthyroid -Recheck TSH in 4-6 weeks Maintenance issues -Orders home meds: -Nutrition: Regular diet -DVT: Ambulation -GI Prophalaxis; Protonix 40mg daily CODE STATUS: Full Admission status: Admit to Observation -I expect this patient to stay less than 24 hours, not to exceed 96 hours for evaluation and management of this problem. Disposition: home tomorrow if stable overnight Primary care provider: Nancy Devries NP
[2017-04-27] MEDS ORDERED: Simvastatin 20 MG (PTOM) PO SCH (17:00)
[2017-04-27] MEDS ORDERED: Simvastatin 20 MG Tab PO SCH (17:00)
[2017-04-27] MEDS: LORazepam 0.5 MG Tab PO PRN (20:10)
[2017-04-27] MEDS: Melatonin 3 MG Tab PO SCH (20:55)
[2017-04-27] MEDS: Enoxaparin 40 MG/0.4 ML Syringe SUBCUT SCH (20:55)
[2017-04-27] MEDS: BIMATOPROST 0.01% EYEBOTH SCH (20:56)
[2017-04-27] MEDS: Azithromycin 250 MG Tab PO SCH (20:58)
[2017-04-27] MEDS: Budesonide 0.5 MG/2 ML Neb Susp NEB SCH (21:04)
[2017-04-27] MEDS: Acetaminophen 325 MG Tab PO PRN (21:04)
[2017-04-28] MEDS: Levalbuterol HCl 1.25 MG/3 ML Neb NEB PRN (07:29)
[2017-04-28] MEDS: Pantoprazole 40 MG Tab.CR PO SCH (07:35)
[2017-04-28] MEDS: Levothyroxine 100 MCG Tab**POM PO SCH (07:35)
[2017-04-28] MEDS: Benzonatate 100 MG Cap PO PRN (07:35)
[2017-04-28] MEDS: ADVAIR 250/50 INHALER (PTOM) INH SCH (07:38)
[2017-04-28] MEDS: Budesonide 0.5 MG/2 ML Neb Susp NEB SCH (07:38)
[2017-04-28] MEDS: Acetaminophen 325 MG Tab PO PRN (08:16)
[2017-04-28] MEDS: Cefdinir 300 MG Cap PO SCH (08:33)
[2017-04-28] MEDS: amLODIPine 5 MG Tab**POM PO SCH (08:33)
[2017-04-28] MEDS: PAROXETINE 12.5 MG PO SCH (08:33)
[2017-04-28] MEDS: Montelukast 10 MG Tab PO SCH (08:34)
[2017-04-28] MEDS: PAROXETINE 37.5 MG PO SCH (08:34)
[2017-04-28] MEDS: LORazepam 0.5 MG Tab PO PRN (08:44)
--- NOTE | 2017-04-28 10:50 | PCM.DCSUM1 ---
Discharge Summary - Hospital Course Brief History: This patient is a 72-year-old woman who was admitted through the emergency department observation status with cough and shortness of breath secondary to upper respiratory tract infection and asthma exacerbation. - Discharge Data Discharge Date: 04/28/17 Discharge Disposition: Home, Self-Care 01 Condition: Fair - Discharge Diagnosis/Problem(s) (1) Asthma with bronchitis SNOMED Code(s): 389569429 ICD Code: J45.909 - UNSPECIFIED ASTHMA, UNCOMPLICATED Status: Acute Priority: High Current Visit: Yes (2) Sinusitis, acute SNOMED Code(s): 38746958 ICD Code: J01.90 - ACUTE SINUSITIS, UNSPECIFIED Status: Acute Priority: Medium Current Visit: Yes Qualifiers: Sinusitis location: maxillary Recurrence: not specified as recurrent Qualified Code(s): J01.00 - Acute maxillary sinusitis, unspecified (3) Anxiety and depression SNOMED Code(s): 497612992 ICD Code: F41.8 - OTHER SPECIFIED ANXIETY DISORDERS Status: Acute Priority: Low Current Visit: Yes - Patient Summary/Data Hospital Course: Ms. Gan is a 72-year-old woman who developed symptoms of shortness of breath associated with cough. She was evaluated in the emergency department, chest x- ray showed no evidence of pulmonary infiltrate and her white blood cell count was normal. She was felt to have probable upper respiratory tract infection, viral versus bacterial, associated with asthma exacerbation. On admission she was given IV fluids for hydration as well as IV antibiotic therapy to cover for the possibility of bacterial infection with Rocephin and azithromycin. Nebulizer therapy was initiated with albuterol and duo nebs and she was started on IV Solu-Medrol. She was feeling somewhat better by the following day but still continued to have significant episodes of coughing associated with shortness of breath. She was continued on observation status as there were no good indications for switch to inpatient status. Sputum culture was obtained at the time of admission and did grow out yeast which was felt to represent a contaminant. On the second day was switched to oral medication with oral prednisone as well as oral antibiotic therapy with Omnicef and azithromycin. The next few days her symptoms improved but had not totally resolved by the time of discharge. Hospital course was complicated by significant anxiety that was exacerbated by glucocorticoid therapy. On the day prior to admission oral prednisone was discontinued. She will be discharged home on additional 4 days of oral antibiotic therapy with Omnicef. Activity will be as tolerated and she will resume her usual diet. Follow-up appointment will be scheduled with her primary care provider within one week. - Patient Instructions Diet: Usual Diet as Tolerated Activity: As Tolerated Other/Special Instructions: Please schedule follow-up appointment with primary care provider within one week. - Discharge Plan Prescriptions/Med Rec: Cefdinir [IJD: Cefdinir] 300 mg PO BID #4 capsule Codeine/guaiFENesin [Robitussin AC] 2 tsp PO Q4H PRN #8 oz PRN Reason: Cough Levalbuterol HCl [Xopenex] 1.25 mg NEB Q4H PRN #60 neb PRN Reason: Dyspnea LORazepam 0.5 mg PO Q4H PRN #12 tablet PRN Reason: Anxiety Home Medications: Home Meds Cyanocobalamin (Vitamin B-12) [Cyanocobalamin Injection] 1,000 mcg IJ ASDIRECTED 06/18/13 [History] Levothyroxine [Synthroid] 100 mcg PO DAILY 06/18/13 [History] PARoxetine HCl [Paxil Cr] 50 mg PO DAILY 06/18/13 [History] amLODIPine [Norvasc] 5 mg PO DAILY 06/18/13 [History] Bimatoprost [LUMIGAN 0.01% Ophth Soln] 2.5 ml EYEBOTH DAILY 01/04/16 [History] Flucinolone Acetonide 1% 1 applic TOP DAILY PRN 01/04/16 [History] clonazePAM [Clonazepam] 1 mg PO ASDIRECTED PRN 01/04/16 [History] Estradiol [Estrace 0.01% Vaginal Crm] 2 mg VAG ASDIRECTED 04/24/17 [History] Fluticasone/Salmeterol [Advair 250-50 Diskus] 1 inhalation IH BID 04/26/17 [ History] Simvastatin [Zocor] 20 mg PO BEDTIME 04/26/17 [History] Cefdinir [IJD: Cefdinir] 300 mg PO BID #4 capsule 04/28/17 [Rx] Codeine/guaiFENesin [Robitussin AC] 2 tsp PO Q4H PRN #8 oz 04/28/17 [Rx] LORazepam 0.5 mg PO Q4H PRN #12 tablet 04/28/17 [Rx] Levalbuterol HCl [Xopenex] 1.25 mg NEB Q4H PRN #60 neb 04/28/17 [Rx] Forms: ED Department Discharge Referrals: PCP,None [Primary Care Provider] - - Patient Data Vitals - Most Recent: Last Vital Signs Temp 95.8 F 04/28/17 07:59 Pulse 64 04/28/17 07:59 Resp 18 04/28/17 07:59 BP 131/52 L 04/28/17 08:33 Pulse Ox 93 L 04/28/17 07:59 Weight - Most Recent: 130 lb I&O - Last 24 hours: Intake & Output 04/27/17 04/28/17 04/28/17 22:59 06:59 14:59 Intake Total 1120 Balance 1120 VIC Results - Last 24 hrs: Microbiology 04/26/17 16:44 Gram Stain - Final Sputum - Expectorated Respiratory Culture - Preliminary YEAST Med Orders - Current: Current Medications Acetaminophen (Tylenol) 650 mg PO Q4H PRN PRN Reason: Pain (Mild 1-3)/fever Last Admin: 04/28/17 08:16 Dose: 650 mg Amlodipine Besylate (Norvasc) 5 mg PO DAILY [facility] Last Admin: 04/28/17 08:33 Dose: 5 mg Azithromycin (Zithromax) 500 mg PO BEDTIME [facility] Last Admin: 04/27/17 20:58 Dose: 500 mg Benzocaine/Menthol (Cepacol Sore Throat) 1 lozenge MUCMEM Q1H PRN PRN Reason: Sore Throat Last Admin: 04/26/17 20:12 Dose: 1 chet Benzonatate (Tessalon Perles) 100 mg PO TID PRN PRN Reason: Cough Last Admin: 04/28/17 07:35 Dose: 100 mg Budesonide (Pulmicort) 0.5 mg NEB BIDRT [facility] Last Admin: 04/28/17 07:38 Dose: 0.5 mg Calcium Carbonate/Glycine (Tums) 500 mg PO Q2H PRN PRN Reason: Indigestion Last Admin: 04/26/17 18:19 Dose: 500 mg Cefdinir (Omnicef) 300 mg PO BID [facility] Last Admin: 04/28/17 08:33 Dose: 300 mg Enoxaparin Sodium (Lovenox) 40 mg SUBCUT Q24H [facility] Last Admin: 04/27/17 20:55 Dose: 40 mg Guaifenesin/Codeine Phosphate (Robitussin Ac) 10 ml PO Q4H PRN PRN Reason: Cough Last Admin: 04/27/17 16:53 Dose: 10 ml Ibuprofen (Motrin) 400 mg PO Q6H PRN PRN Reason: Pain (mild 1-3) Last Admin: 04/25/17 21:05 Dose: 400 mg Levalbuterol HCl (Xopenex) 1.25 mg NEB Q4H PRN PRN Reason: Dyspnea Last Admin: 04/28/17 07:29 Dose: 1.25 mg Levothyroxine Sodium (Synthroid) 100 mcg PO ACBREAKFAST [facility] Last Admin: 04/28/17 07:35 Dose: 100 mcg Lorazepam (Ativan) 0.5 mg PO Q4H PRN PRN Reason: Anxiety Last Admin: 04/28/17 08:44 Dose: 0.5 mg Melatonin (Melatonin) 9 mg PO BEDTIME [facility] Last Admin: 04/27/17 20:55 Dose: 9 mg Montelukast Sodium (Singulair) 10 mg PO DAILY [facility] Last Admin: 04/28/17 08:34 Dose: 10 mg Morphine Sulfate (Morphine 10 Mg/0.5 Ml Oral Syringe) 5 mg PO Q2H PRN PRN Reason: Pain Last Admin: 04/27/17 20:10 Dose: 5 mg Estrace 0.01% (Vaginal Cream (Ptom)) 0 mg VAG Q48H [facility] Last Admin: 04/27/17 20:54 Dose: 1 mg Ondansetron HCl (Zofran Odt) 4 mg PO Q6H PRN PRN Reason: Nausea able to take PO Last Admin: 04/27/17 21:03 Dose: 4 mg Oxycodone HCl (Oxycodone) 5 mg PO Q4H PRN PRN Reason: Pain (moderate 4-6) Last Admin: 04/27/17 21:04 Dose: 5 mg Pantoprazole Sodium (Protonix) 40 mg PO ACBREAKFAST [facility] Last Admin: 04/28/17 07:35 Dose: 40 mg Bimatoprost (Lumigan () 0.01%Pom) 0 each EYEBOTH BEDTIME [facility] Last Admin: 04/27/17 20:56 Dose: 1 each Paroxetine Er (Paxil (Cr) 37.5mgPom) 0 each PO DAILY [facility] Last Admin: 04/28/17 08:34 Dose: 1 each Paroxetine Er (Paxil (Cr) 12.5mgPom) 0 each PO DAILY [facility] Last Admin: 04/28/17 08:33 Dose: 1 each Advair 250/50 (Inhaler (Ptom)) 0 each INH BIDRT [facility] Last Admin: 04/28/17 07:38 Dose: 1 each Simvastatin (Zocor) 20 mg PO QPM [facility] Last Admin: 04/27/17 16:53 Dose: 20 mg Discontinued Medications Albuterol (Proventil Neb Soln) 2.5 mg NEB ONETIME ONE Stop: 04/24/17 19:47 Last Admin: 04/24/17 19:53 Dose: 2.5 mg Albuterol (Proventil Neb Soln) 2.5 mg NEB Q4H PRN PRN Reason: Shortness Of Breath/wheezing Albuterol/Ipratropium (Duoneb 3.0-0.5 Mg/3 Ml) 3 ml NEB ONETIME ONE Stop: 04/24/17 19:15 Last Admin: 04/24/17 19:18 Dose: 3 ml Albuterol/Ipratropium (Duoneb 3.0-0.5 Mg/3 Ml) 3 ml NEB QIDRT [facility] Last Admin: 04/26/17 07:25 Dose: Not Given Azithromycin (Zithromax) Confirm Administered Dose 500 mg .ROUTE .STK-MED ONE Stop: 04/24/17 22:45 Last Admin: 04/24/17 22:54 Dose: Not Given Clonazepam (Klonopin) 1 mg PO ASDIRECTED PRN PRN Reason: Anxiety Last Admin: 04/26/17 02:38 Dose: 1 mg Clonazepam (Klonopin) 1 mg PO Q4H PRN PRN Reason: Anxiety Last Admin: 04/27/17 08:38 Dose: 1 mg Enoxaparin Sodium (Lovenox) 40 mg SUBCUT DAILY [facility] Last Admin: 04/24/17 23:28 Dose: 40 mg Sodium Chloride (Normal Saline) 1,000 mls @ 125 mls/hr IV ASDIRECTED [facility] Last Admin: 04/25/17 06:58 Dose: 125 mls/hr Azithromycin 500 mg/ Sodium (Chloride) 250 mls @ 250 mls/hr IV Q24H [facility] Stop: 04/26/17 22:59 Last Admin: 04/24/17 22:51 Dose: 250 mls/hr Ceftriaxone Sodium 1 gm/ (Sodium Chloride) 50 mls @ 200 mls/hr IV Q24H [facility] Stop: 05/01/17 23:01 Last Admin: 04/25/17 01:04 Dose: 100 mls/hr Sodium Chloride (Normal Saline) Confirm Administered Dose 250 mls @ as directed .ROUTE .STK-MED ONE Stop: 04/24/17 22:47 Last Admin: 04/24/17 22:54 Dose: Not Given Latanoprost (Xalatan 0.005% Ophth Soln) 0 ml EYEBOTH DAILY [facility] Levothyroxine Sodium (Synthroid) 100 mcg PO DAILY [facility] Lorazepam (Ativan) 1 mg IVPUSH ONETIME ONE Stop: 04/24/17 21:16 Last Admin: 04/24/17 21:46 Dose: 1 mg Lorazepam (Ativan) 1 mg IV Q6H PRN PRN Reason: Nausea/Vomiting Methylprednisolone Sodium Succinate (Solu-Medrol) 125 mg IV ONETIME ONE Stop: 04/24/17 22:27 Last Admin: 04/25/17 02:08 Dose: Not Given Methylprednisolone Sodium Succinate (Solu-Medrol) 62.5 mg IV Q6H [facility] Methylprednisolone Sodium Succinate (Solu-Medrol) 62.5 mg IV Q6H [facility] Last Admin: 04/25/17 05:43 Dose: 62.5 mg Methylprednisolone Sodium Succinate (Solu-Medrol) 62.5 mg IV Q6H [facility] Last Admin: 04/25/17 08:35 Dose: 62.5 mg Morphine Sulfate (Morphine) 2 mg IVPUSH Q2H PRN PRN Reason: Pain (severe 7-10) Last Admin: 04/26/17 10:10 Dose: 2 mg Pantoprazole Sodium (Protonix Iv) 40 mg IVPUSH DAILY [facility] Last Admin: 04/25/17 08:40 Dose: 40 mg Prednisone (Prednisone) 40 mg PO ONETIME ONE Stop: 04/24/17 19:15 Last Admin: 04/24/17 19:18 Dose: 40 mg Prednisone (Prednisone) 20 mg PO BIDAC [facility] Last Admin: 04/27/17 07:34 Dose: 20 mg Zolpidem Tartrate (Ambien) 5 mg PO BEDTIME PRN PRN Reason: Sleep Last Admin: 04/25/17 21:06 Dose: 5 mg *Q Meaningful Use (DIS) - VTE *Q VTE Criteria *Q: - Stroke *Q Stroke Criteria *Q: - AMI *Q AMI Criteria *Q:
[2017-04-28 11:36] VITALS: BP 111/45
== END 2017-04-28 12:30 | disposition home or self-care (01) ==
LOC: JP.ED 19:00 → JP.MS 21:16
PROVIDERS: ADMIT Internal Medicine; ATTEND Hospitalist
DX: J45.909 Unspecified asthma, uncomplicated (principal); J01.00 Acute maxillary sinusitis, unspecified; F41.8 Other specified anxiety disorders; I10 Essential (primary) hypertension; E78.00 Pure hypercholesterolemia, unspecified; K21.9 Gastro-esophageal reflux disease without esophagitis; E03.9 Hypothyroidism, unspecified; Z79.899 Other long term (current) drug therapy; Z88.1 Allergy status to other antibiotic agents; Z88.2 Allergy status to sulfonamides; Z90.710 Acquired absence of both cervix and uterus
CPT/HCPCS: 36415; 71020; 80048; 80053; 84443; 85025; 85027; 87070; 87077; 87205; 94640; 94762; 99285; A9270; C9113; J0456; J0696; J1650; J2060; J2270; J2920; J2930; J7030; J7040; J7050; J7612; J7620; J7626; 96361; 96365; 96367; 96372; 96374; 96375; 96376; 99217; 99219; 99224; 99225; G0378

== ENCOUNTER 2017-06-18 12:27 | Emergency (ER) | payer MEDICARE, OTHER ==
--- NOTE | 2017-06-18 12:56 | EDM.PDOC ---
ED HPI GENERAL MEDICAL PROBLEM - General Chief Complaint: Respiratory Problem Stated Complaint: CHEST PAIN, SHORTNESS OF BREATH Time Seen by Provider: 06/18/17 13:30 Source of Information: Reports: Patient, Old Records History Limitations: Reports: No Limitations - History of Present Illness INITIAL COMMENTS - FREE TEXT/NARRATIVE: 72 yo female presents with chest pain and SOB. Has recently been seen(5 days ago ) at an ER in the [facility] for "pneumonia and wheezing". Was given a 5 day supply of both azithromycin and prednisone. Just finished both. No current fevers. No cough. Took clonazepam last night with some benefit, but none today. No calf pain or LE edema. Nothing changes her pain. Left Chest Pain Score (Numeric/FACES): 2 - Related Data Allergies Allergy/AdvReac Type Severity Reaction Status Date / Time nitrofurantoin Allergy Intermediate Difficulty Verified 06/18/17 12:48 macrocrystalline Breathing [From Macrodantin] amoxicillin [Amoxicillin] Allergy Hives Verified 06/18/17 12:48 Sulfa (Sulfonamide Allergy Hives Verified 06/18/17 12:48 Antibiotics) sulfisoxazole Allergy Hives Verified 06/18/17 12:48 [From Gantrisin] sulfisoxazole acetyl Allergy Hives Verified 06/18/17 12:48 [From Gantrisin] zolpidem AdvReac Mild Confusion Verified 06/18/17 12:48 Home Meds: Home Meds Cyanocobalamin (Vitamin B-12) [Cyanocobalamin Injection] 1,000 mcg IJ ASDIRECTED 06/18/13 [History] Levothyroxine [Synthroid] 100 mcg PO DAILY 06/18/13 [History] PARoxetine HCl [Paxil Cr] 50 mg PO DAILY 06/18/13 [History] amLODIPine [Norvasc] 5 mg PO DAILY 06/18/13 [History] Bimatoprost [LUMIGAN 0.01% Ophth Soln] 2.5 ml EYEBOTH DAILY 01/04/16 [History] Flucinolone Acetonide 1% 1 applic TOP DAILY PRN 01/04/16 [History] clonazePAM [Clonazepam] 1 mg PO ASDIRECTED PRN 01/04/16 [History] Estradiol [Estrace 0.01% Vaginal Crm] 2 mg VAG ASDIRECTED 04/24/17 [History] Fluticasone/Salmeterol [Advair 250-50 Diskus] 1 inhalation IH BID 04/26/17 [ History] Simvastatin [Zocor] 20 mg PO BEDTIME 04/26/17 [History] LORazepam 0.5 mg PO Q4H PRN #12 tablet 04/28/17 [Rx] Levalbuterol HCl [Xopenex] 1.25 mg NEB Q4H PRN #60 neb 04/28/17 [Rx] Hydrochlorothiazide/Olmesartan [Benicar HCT 40-25 MG] 1 tab PO DAILY 06/18/17 [ History] Meloxicam [Mobic] 7.5 mg PO BID #14 ml 06/18/17 [Rx] Past Medical History HEENT History: Reports: Cataract, Glaucoma Cardiovascular History: Reports: High Cholesterol, Hypertension Respiratory History: Reports: Asthma Gastrointestinal History: Reports: GERD, Irritable Bowel Syndrome Genitourinary History: Reports: UTI, Recurrent, Other (See Below) Other Genitourinary History: ESBL E coli. 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: Musculoskeletal History: Reports: Fibromyalgia, Osteoarthritis, Osteoporosis, Other (See Below) Other Musculoskeletal History: spinal stenosis Psychiatric History: Reports: Depression Endocrine/Metabolic History: Reports: Other (See Below) Other Endocrine/Metabolic History: thyroid disease Dermatologic History: Reports: Psoriasis, Seborrheic Dermatitis, Other (See Below) Other Dermatologic History: rosacea - Infectious Disease History Infectious Disease History: Reports: Chicken Pox - Past Surgical History HEENT Surgical History: Reports: Tonsillectomy Female Surgical History: Reports: Hysterectomy Social & Family History - Tobacco Use Smoking Status *Q: Unknown Ever Smoked Second Hand Smoke Exposure: No - Caffeine Use Caffeine Use: Reports: Coffee, Soda Other Caffeine Use: 3 per day - Alcohol Use Days Per Week of Alcohol Use: 1 Number of Drinks Per Day: 2 Total Drinks Per Week: 2 - Recreational Drug Use Recreational Drug Use: No - Living Situation & Occupation Living situation: Reports: Occupation: Retired (lives with of 37 years in [place], [place].) ED ROS GENERAL - Review of Systems Review Of Systems: See Below Constitutional: Reports: No Symptoms HEENT: Reports: No Symptoms Respiratory: Reports: Shortness of Breath (mild) Cardiovascular: Reports: Chest Pain (upper anterior) GI/Abdominal: Reports: No Symptoms : Reports: No Symptoms Musculoskeletal: Reports: No Symptoms Skin: Reports: No Symptoms Neurological: Reports: No Symptoms Psychiatric: Reports: Anxiety ED EXAM, GENERAL - Physical Exam Exam: See Below Exam Limited By: No Limitations General Appearance: Alert, WD/WN, Anxious, Mild Distress Eye Exam: Bilateral Eye: Normal Inspection Ears: Normal External Exam, Normal Canal, Hearing Grossly Normal Ear Exam: Bilateral Ear: Auricle Normal, Canal Normal Nose: Normal Inspection, Normal Mucosa, No Blood Throat/Mouth: Normal Inspection, Normal Lips, Normal Oropharynx, Normal Voice, No Airway Compromise Head: Atraumatic, Normocephalic Neck: Normal Inspection, Supple Respiratory/Chest: No Respiratory Distress, Lungs Clear, Normal Breath Sounds, No Accessory Muscle Use, Other (mild chest wall tenderness, upper). No: Chest Non-Tender Cardiovascular: Regular Rate, Rhythm, No Edema GI/Abdominal: Normal Bowel Sounds, Soft, Non-Tender, No Distention Back Exam: Normal Inspection. No: CVA Tenderness (R), CVA Tenderness (L) Extremities: Normal Inspection, Normal Range of Motion, Non-Tender, No Pedal Edema Neurological: Alert, Oriented, CN II-XII Intact, Normal Cognition Psychiatric: Anxious Skin Exam: Warm, Dry, Intact, Normal Color, No Rash EKG INTERPRETATION EKG Date: 06/18/17 Time: 12:30 Rhythm: NSR Rate (Beats/Min): 82 [place]: Normal P-Wave: Present QRS: Normal ST-T: Normal QT: Normal Comparison: NA - No Prior EKG Course - Vital Signs Text/Narrative:: No change in CP with NTG x 3. Has mild chest tenderness now on exam, will try Toradol 15 mg IV Last Recorded V/S: Last Vital Signs Temp 37.2 C 06/18/17 12:38 Pulse 62 06/18/17 15:25 Resp 12 06/18/17 15:25 BP 122/67 06/18/17 15:25 Pulse Ox 96 06/18/17 15:25 - Orders/Labs/Meds Orders: Active Orders 24 hr Category Date Time Status Cardiac Monitoring [RC] .As Directed Care 06/18/17 13:43 Active Sodium Chloride 0.9% [Saline Flush] Med 06/18/17 13:42 Active 10 ml FLUSH ASDIRECTED PRN Saline Lock Insert [OM.PC] Routine Oth 06/18/17 13:42 Ordered Medication Orders Sodium Chloride (Saline Flush) 10 ml FLUSH ASDIRECTED PRN PRN Reason: Keep Vein Open Last Admin: 06/18/17 14:48 Dose: 10 ml Labs: Laboratory Tests 06/18/17 06/18/17 Range/Units 13:55 13:55 WBC 11.4 H (4.5-11.0) K/uL RBC 5.12 (3.30-5.50) M/uL Hgb 15.8 H D (12.0-15.0) g/dL Hct 45.6 (36.0-48.0) % MCV 89 (80-98) fL MCH 31 (27-31) pg MCHC 35 (32-36) % Plt Count 435 H (150-400) K/uL Sodium 133 L (140-148) mmol/L Potassium 3.5 L (3.6-5.2) mmol/L Chloride 97 L (100-108) mmol/L Carbon Dioxide 26 (21-32) mmol/L Anion Gap 13.5 (5.0-14.0) mmol/L BUN 23 H D (7-18) mg/dL Creatinine 0.9 (0.6-1.0) mg/dL Est Cr Clr Drug Dosing 46.05 mL/min Estimated GFR (MDRD) > 60 (>60) Glucose 97 (74-106) mg/dL Calcium 9.1 (8.5-10.1) mg/dL Troponin I < 0.017 (0.000-0.056) ng/mL Meds: Medications Generic Name Dose Route Start Last Admin Trade Name Freq PRN Reason Stop Dose Admin Sodium Chloride 10 ml 06/18/17 13:42 06/18/17 14:48 Saline Flush FLUSH 10 ml ASDIRECTED PRN Administration Keep Vein Open Discontinued Medications Generic Name Dose Route Start Last Admin Trade Name Freq PRN Reason Stop Dose Admin Aspirin 324 mg 06/18/17 13:43 06/18/17 14:37 Aspirin PO 06/18/17 13:44 324 mg ONETIME ONE Administration Clonazepam 1 mg 06/18/17 13:44 06/18/17 14:38 Klonopin PO 06/18/17 13:45 1 mg NOW STA Administration Ketorolac Tromethamine 15 mg 06/18/17 15:08 06/18/17 15:14 Toradol IVPUSH 06/18/17 15:09 15 mg ONETIME ONE Administration Nitroglycerin 0.4 mg 06/18/17 13:43 06/18/17 14:57 Nitrostat SL 0.4 mg Q5M PRN Administration Chest Pain Departure - Departure Time of Disposition: 15:45 Disposition: Home, Self-Care 01 Condition: Fair Clinical Impression: Chest wall pain, Anxiety Prescriptions: Meloxicam [Mobic] 7.5 mg PO BID #14 ml Referrals: PCP,None [Primary Care Provider] - Forms: ED Department Discharge Additional Instructions: Use Mobic as directed, take with food. May add acetaminophen 1000 mg every 6 hrs as needed for added pain relief. Recheck in the clinic on Wednesday, call for an appt. Return to the ER if worse. - My Orders Last 24 Hours: My Active Orders 06/18/17 13:42 Sodium Chloride 0.9% [Saline Flush] 10 ml FLUSH ASDIRECTED PRN Saline Lock Insert [OM.PC] Routine 06/18/17 13:43 Cardiac Monitoring [RC] .As Directed - Assessment/Plan Last 24 Hours: My Active Orders 06/18/17 13:42 Sodium Chloride 0.9% [Saline Flush] 10 ml FLUSH ASDIRECTED PRN Saline Lock Insert [OM.PC] Routine 06/18/17 13:43 Cardiac Monitoring [RC] .As Directed
[2017-06-18] MEDS ORDERED: Sodium Chloride 0.9% 10 ML Syringe FLUSH PRN (13:42)
[2017-06-18] MEDS ORDERED: Aspirin 81 MG Tab.Chew PO ONE (13:43)
[2017-06-18] MEDS ORDERED: ClonazePAM 1 MG Tab PO STA (13:44)
[2017-06-18] MEDS: Nitroglycerin 0.4 MG Tab.SL SL PRN ×3 (14:40→14:57)
[2017-06-18] MEDS ORDERED: Ketorolac 30 MG/ML SDV IVPUSH ONE (15:08)
[2017-06-18 15:26] VITALS: BP 122/67
== END 2017-06-18 16:04 | disposition home or self-care (01) ==
LOC: JP.ED 12:27
DX: R07.89 Other chest pain (principal); I10 Essential (primary) hypertension; E78.00 Pure hypercholesterolemia, unspecified; F41.9 Anxiety disorder, unspecified; Z88.1 Allergy status to other antibiotic agents; Z88.2 Allergy status to sulfonamides; Z88.8 Allergy status to other drugs, medicaments and biological substances; Z79.899 Other long term (current) drug therapy
CPT/HCPCS: 36415; 80048; 84484; 85027; 96374; 99285; A9270; J1885; J7050

== ENCOUNTER 2020-03-25 15:54 | Emergency (ER) | payer MEDICARE, OTHER ==
--- NOTE | 2020-03-25 17:04 | EDM.PDOC ---
ED HPI GENERAL MEDICAL PROBLEM - General Chief Complaint: Abdominal Pain Stated Complaint: RIGHT SIDE PAIN, RAIDATES TO RT FLANK Time Seen by Provider: 03/25/20 16:45 Source of Information: Reports: Patient, Family History Limitations: Reports: No Limitations - History of Present Illness INITIAL COMMENTS - FREE TEXT/NARRATIVE: 75-year-old female noted abdominal pain primarily today throughout her abdomen localizing it seems more in the right lower quadrant without nausea or vomiting diarrhea or fever but she does have chronic constipation and has not had a bowel movement very recently of any substance. Worried about appendicitis. She reports that she has multiple medical problems for which she has been treated for some time. No fever or chills. Does not recall similar pain exactly. Onset: Today, Gradual Duration: Hour(s): Location: Reports: Abdomen Quality: Reports: Ache Severity: Moderate Improves with: Reports: None Worsens with: Reports: None Associated Symptoms: Reports: No Other Symptoms Right Lower Abdomen Pain Score (Numeric/FACES): 8 - Related Data Allergies Allergy/AdvReac Type Severity Reaction Status Date / Time nitrofurantoin Allergy Intermediate Difficulty Verified 04/22/18 18:37 macrocrystalline Breathing [From Macrodantin] amoxicillin [Amoxicillin] Allergy Hives Verified 04/22/18 18:37 Sulfa (Sulfonamide Allergy Hives Verified 04/22/18 18:37 Antibiotics) sulfisoxazole Allergy Hives Verified 04/22/18 18:37 [From Gantrisin] sulfisoxazole acetyl Allergy Hives Verified 04/22/18 18:37 [From Gantrisin] zolpidem AdvReac Mild Confusion Verified 04/22/18 18:37 Home Meds: Home Meds Cyanocobalamin (Vitamin B-12) [Cyanocobalamin Injection] 1,000 mcg IJ ASDIRECTED 06/18/13 [History] Levothyroxine [Synthroid] 100 mcg PO DAILY 06/18/13 [History] amLODIPine [Norvasc] 5 mg PO DAILY 06/18/13 [History] Bimatoprost [LUMIGAN 0.01% Ophth Soln] 2.5 ml EYEBOTH DAILY 01/04/16 [History] Flucinolone Acetonide 1% 1 applic TOP DAILY PRN 01/04/16 [History] clonazePAM [Clonazepam] 1 mg PO ASDIRECTED PRN 01/04/16 [History] estradioL [Estrace 0.01% Vaginal Crm] 1 mg VAG ASDIRECTED 04/24/17 [History] Fluticasone Propion/Salmeterol [Advair 250-50 Diskus] 1 inhalation IH BID 04/26/17 [History] Levalbuterol HCl [Xopenex] 1.25 mg NEB Q4H PRN #60 neb 04/28/17 [Rx] Hydrochlorothiazide/Olmesartan [Benicar HCT 40-25 MG] 1 tab PO DAILY 06/18/17 [History] Acetylcysteine [K-Iggvjr-u-Cysteine] 600 mg PO BEDTIME 09/08/18 [History] DULoxetine [Cymbalta] 120 mg PO DAILY 09/08/18 [History] Magnesium Oxide [Magnesium] 400 mg PO DAILY 09/08/18 [History] Olmesartan Medoxomil [Benicar] 40 mg PO DAILY 09/08/18 [History] Meloxicam 15 mg PO DAILY PRN #30 tablet 09/12/18 [Rx] Denosumab [Xgeva] 120 mg INJECT Q6M 09/27/18 [History] Cefuroxime Axetil [Ceftin] 500 mg PO BID 03/25/20 [History] Cholecalciferol (Vitamin D3) [Vitamin D3] 2,000 unit PO DAILY 03/25/20 [History] Past Medical History HEENT History: Reports: Cataract, Glaucoma Cardiovascular History: Reports: High Cholesterol, Hypertension Respiratory History: Reports: Asthma Gastrointestinal History: Reports: GERD, Irritable Bowel Syndrome Genitourinary History: Reports: UTI, Recurrent, Other (See Below) Other Genitourinary History: ESBL E coli. 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 L leg pain Psychiatric History: Reports: Anxiety, Depression, Panic Attack, PTSD Endocrine/Metabolic History: Reports: Other (See Below) Other Endocrine/Metabolic History: thyroid disease Hematologic History: Reports: B12 Deficiency Dermatologic History: Reports: Psoriasis, Seborrheic Dermatitis, Other (See Below) Other Dermatologic History: rosacea - Infectious Disease History Infectious Disease History: Reports: Chicken Pox, Measles, Mumps - Past Surgical History Head Surgeries/Procedures: Reports: None HEENT Surgical History: Reports: Cataract Surgery, Tonsillectomy Cardiovascular Surgical History: Reports: None Respiratory Surgical History: Reports: None GI Surgical History: Reports: Cholecystectomy, Colonoscopy Female Surgical History: Reports: Hysterectomy Endocrine Surgical History: Reports: None Musculoskeletal Surgical History: Reports: None Dermatological Surgical History: Reports: None Social & Family History - Family History Cardiac: Reports: HI - Tobacco Use Tobacco Use Status *Q: Never Tobacco User - Caffeine Use Caffeine Use: Reports: Coffee, Soda Other Caffeine Use: 3 per day - Recreational Drug Use Recreational Drug Use: No - Living Situation & Occupation Living situation: Reports: Occupation: Retired (lives with of 37 years in [place], [place].) ED ROS GENERAL - Review of Systems Review Of Systems: See Below Constitutional: Reports: Decreased Appetite HEENT: Reports: No Symptoms Respiratory: Reports: No Symptoms Cardiovascular: Reports: No Symptoms Endocrine: Reports: Fatigue GI/Abdominal: Reports: Abdominal Pain, Constipation : Reports: No Symptoms Musculoskeletal: Reports: No Symptoms Skin: Reports: No Symptoms Neurological: Reports: No Symptoms ED EXAM, GI/ABD - Physical Exam Exam: See Below Text/Narrative:: Alert cooperative female resting on a gurney with relatively normal vital signs and does not appear to be in great distress. HEENT shows eyes ears nose appear to be okay she has a mask on neck is supple no increased nodes. Chest clear regular rate and rhythm. Abdomen is tenderness minimal throughout with guarding but no real rebound and no masses are felt. Skin extremities appear to be normal neurologic is physiologic heart tone Exam Limited By: No Limitations General Appearance: WD/WN, Anxious Ears: Normal External Exam Nose: Normal Inspection Head: Atraumatic, Normocephalic Neck: Normal Inspection, Supple Respiratory/Chest: No Respiratory Distress, Lungs Clear Cardiovascular: Regular Rate, Rhythm GI/Abdominal Exam: Normal Bowel Sounds, Guarding, Tender Extremities: Normal Inspection, Normal Range of Motion, Non-Tender Neurological: Alert, Oriented, Normal Cognition Psychiatric: Normal Affect, Normal Mood Skin Exam: Warm, Dry Course - Vital Signs Text/Narrative:: 5-year-old female with a history of some constipation comes in with abdominal pain getting worse for last few days without much bowel movement. General exam is pretty much unremarkable. Flat plate of the abdomen shows extensive stool. She takes MiraLAX 1 capful daily but that is not enough. She will be discharged on 1 capful of MiraLAX and 1 glass of water every hour or 2 until she gets delivery she will return if necessary Last Recorded V/S: Last Vital Signs Temp 36.8 C 03/25/20 16:30 Pulse 86 03/25/20 17:58 Resp 20 03/25/20 17:58 BP 146/64 H 03/25/20 17:58 Pulse Ox 95 03/25/20 17:58 - Orders/Labs/Meds Orders: Active Orders 24 hr Category Date Time Status Abdomen 1V Flat [CR] Stat Exams 03/25/20 17:04 Taken Labs: Laboratory Tests 03/25/20 03/25/20 03/25/20 Range/Units 17:12 17:12 17:12 WBC 12.0 H (4.5-11.0) K/uL RBC 4.48 (3.30-5.50) M/uL Hgb 13.3 D (12.0-15.0) g/dL Hct 40.9 (36.0-48.0) % MCV 91 (80-98) fL MCH 30 (27-31) pg MCHC 33 (32-36) % Plt Count 323 (150-400) K/uL Sodium 135 L (140-148) mmol/L Potassium 4.0 (3.6-5.2) mmol/L Chloride 100 (100-108) mmol/L Carbon Dioxide 25 (21-32) mmol/L Anion Gap 14.0 (5.0-14.0) mmol/L BUN 12 (7-18) mg/dL Creatinine 0.8 (0.6-1.0) mg/dL Est Cr Clr Drug Dosing 49.49 mL/min Estimated GFR (MDRD) > 60 (>60) Glucose 113 H (74-106) mg/dL Calcium 8.2 L (8.5-10.1) mg/dL Total Bilirubin 0.7 D (0.2-1.0) mg/dL AST 17 (15-37) U/L ALT 24 (12-78) U/L Alkaline Phosphatase 59 (46-116) U/L C-Reactive Protein 1.97 H (0.0-0.3) mg/dL Total Protein 6.5 (6.4-8.2) g/dL Albumin 3.3 L (3.4-5.0) g/dL Globulin 3.2 (2.3-3.5) g/dL Albumin/Globulin Ratio 1.0 L (1.2-2.2) Urine Color (YELLOW) Urine Appearance (CLEAR) Urine pH (5.0-8.0) Ur Specific [place] (1.008-1.030) Urine Protein (NEGATIVE) mg/dL Urine Glucose (UA) (NEGATIVE) mg/dL Urine Ketones (NEGATIVE) mg/dL Urine Occult Blood (NEGATIVE) Urine Nitrite (NEGATIVE) Urine Bilirubin (NEGATIVE) Urine Urobilinogen (0.2-1.0) EU/dL Ur Leukocyte Esterase (NEGATIVE) Urine RBC (0-5) Urine WBC (0-5) Ur Epithelial Cells Amorphous Sediment Urine Bacteria Urine Mucus 03/25/20 Range/Units 17:41 WBC (4.5-11.0) K/uL RBC (3.30-5.50) M/uL Hgb (12.0-15.0) g/dL Hct (36.0-48.0) % MCV (80-98) fL MCH (27-31) pg MCHC (32-36) % Plt Count (150-400) K/uL Sodium (140-148) mmol/L Potassium (3.6-5.2) mmol/L Chloride (100-108) mmol/L Carbon Dioxide (21-32) mmol/L Anion Gap (5.0-14.0) mmol/L BUN (7-18) mg/dL Creatinine (0.6-1.0) mg/dL Est Cr Clr Drug Dosing mL/min Estimated GFR (MDRD) (>60) Glucose (74-106) mg/dL Calcium (8.5-10.1) mg/dL Total Bilirubin (0.2-1.0) mg/dL AST (15-37) U/L ALT (12-78) U/L Alkaline Phosphatase (46-116) U/L C-Reactive Protein (0.0-0.3) mg/dL Total Protein (6.4-8.2) g/dL Albumin (3.4-5.0) g/dL Globulin (2.3-3.5) g/dL Albumin/Globulin Ratio (1.2-2.2) Urine Color Yellow (YELLOW) Urine Appearance Cloudy A (CLEAR) Urine pH 6.5 (5.0-8.0) Ur Specific [place] 1.025 (1.008-1.030) Urine Protein 30 H (NEGATIVE) mg/dL Urine Glucose (UA) Negative (NEGATIVE) mg/dL Urine Ketones Negative (NEGATIVE) mg/dL Urine Occult Blood Negative (NEGATIVE) Urine Nitrite Negative (NEGATIVE) Urine Bilirubin Negative (NEGATIVE) Urine Urobilinogen 0.2 (0.2-1.0) EU/dL Ur Leukocyte Esterase Trace H (NEGATIVE) Urine RBC 0-5 (0-5) Urine WBC 5-10 H (0-5) Ur Epithelial Cells Many Amorphous Sediment Not seen Urine Bacteria Moderate Urine Mucus Moderate - Re-Assessments/Exams Free Text/Narrative Re-Assessment/Exam: 03/25/20 18:32 To 1 capful MiraLAX and 1 glass of water every hour or 2 until you get delivery. Return as necessary Departure - Departure Time of Disposition: 18:30 Disposition: Home, Self-Care 01 Condition: Good Clinical Impression: Abdominal pain - Discharge Information Referrals: Nancy Amaral MD [Primary Care Provider] - Forms: ED Department Discharge Sepsis Event Note (ED) - Evaluation Sepsis Screening Result: No Definite Risk - Focused Exam Vital Signs: Vital Signs Temp Pulse Resp BP Pulse Ox 03/25/20 17:58 86 20 146/64 H 95 03/25/20 16:30 36.8 C 102 H 16 164/68 H 95 03/25/20 16:18 36.8 C 102 H 16 164/68 H 95 - My Orders Last 24 Hours: My Active Orders 03/25/20 17:04 Abdomen 1V Flat [CR] Stat - Assessment/Plan Last 24 Hours: My Active Orders 03/25/20 17:04 Abdomen 1V Flat [CR] Stat
[2020-03-25 18:42] VITALS: BP 148/65; PULSE 83
--- NOTE | 2020-03-26 09:01 | CR ---
Abdomen 1V Flat CLINICAL HISTORY: Abdominal pain FINDINGS: There are scattered air-filled loops of small bowel in a nonacute configuration. There are surgical clips in the right upper quadrant. There is a large amount of stool throughout the colon. Bowel content could obscure small urinary calcifications IMPRESSION: Moderate fecal retention Nonacute intestinal gas pattern
== END 2020-03-25 18:56 | disposition home or self-care (01) ==
LOC: JP.ED 15:54
DX: R10.31 Right lower quadrant pain (principal); K59.09 Other constipation; I10 Essential (primary) hypertension; J45.909 Unspecified asthma, uncomplicated; F32.9 Major depressive disorder, single episode, unspecified; F41.0 Panic disorder [episodic paroxysmal anxiety]; Z88.1 Allergy status to other antibiotic agents; Z88.2 Allergy status to sulfonamides; Z88.8 Allergy status to other drugs, medicaments and biological substances; Z79.899 Other long term (current) drug therapy
CPT/HCPCS: 36415; 74018; 74018-26; 80053; 81001; 85027; 86140; 99284